=== PATIENT | female | born 1945 | race Caucasian/White ===

== ENCOUNTER 2019-11-10 10:30 | Outpatient (CLI) | payer MEDICARE, SELFPAY | END 2019-11-10 10:31 | disposition home or self-care (01) | LOC: RHEOACUTE 11-27 14:47 | PROVIDERS: Family Provider Family Medicine; PCP Family Medicine; Visit Provider Internal Medicine Rheumatology | DX: M05.79 Rheumatoid arthritis with rheumatoid factor of multiple sites without organ or systems involvement (principal) | CPT/HCPCS: J3262 ==

== ENCOUNTER 2019-11-10 12:22 | Outpatient (CLI) | payer MEDICARE, SELFPAY ==
--- NOTE | 2019-11-10 12:32 | XR_ITS ---
WS: [id number] DEXA (DUAL ENERGY X-RAY ABSORPTIOMETRY) Bone mineral density was performed using a [employer] machine. HISTORY: POSTMENOPAUSAL OSTEOPOROSIS COMPARISON: None available. Lumbar spine BMD (L1-L4): 0.861 g/cm2 T score: -2.7 Z score: -1.3 Total hip BMD: Left: 0.656 g/cm2. T score: -2.8 Z score: -1.3 Right: 0.694 g/cm2. T score: -2.5 Z score: -1.0 10 year probability of a major osteoporotic fracture is 55%. XR/XR DEXA axial skeleton* [id number] IMPRESSION: OSTEOPOROSIS based upon the WHO classification for females.
== END 2019-11-10 12:23 | disposition home or self-care (01) ==
LOC: RADWPI 12:27
PROVIDERS: Family Provider Family Medicine; PCP Family Medicine; Referring Provider Family Medicine; Visit Provider Internal Medicine Rheumatology
DX: M81.0 Age-related osteoporosis without current pathological fracture (principal); Z78.0 Asymptomatic menopausal state; M05.79 Rheumatoid arthritis with rheumatoid factor of multiple sites without organ or systems involvement
CPT/HCPCS: 77080; 96365; 96374; J3262

== ENCOUNTER 2019-12-19 10:44 | Outpatient (CLI) | payer MEDICARE, SELFPAY ==
[2019-12-19 11:00] VITALS: BP 124/53; PULSE 78; RESP 16; TEMP 36.4; O2SAT 96
[2019-12-19 12:00] VITALS: BP 127/65; PULSE 76; RESP 16; TEMP 36.4
== END 2019-12-19 10:45 | disposition home or self-care (01) ==
LOC: RHEOACUTE 10:45
PROVIDERS: Family Provider Family Medicine; PCP Family Medicine; Visit Provider Internal Medicine Rheumatology
DX: M05.79 Rheumatoid arthritis with rheumatoid factor of multiple sites without organ or systems involvement (principal)
CPT/HCPCS: 96365; J3262

== ENCOUNTER 2020-01-23 09:00 | Outpatient (CLI) | payer MEDICARE, SELFPAY ==
[2020-01-23 09:08] VITALS: BP 130/66; PULSE 87; RESP 16; TEMP 36.6; O2SAT 97
--- NOTE | 2020-01-23 10:25 | PC.NURSE ---
COVID 19 screening- pt denies. afebrile. Discussed prevention techniques.
[2020-01-23 11:43] VITALS: BP 121/68; PULSE 80; RESP 16; TEMP 36.6; O2SAT 96
== END 2020-01-23 09:01 | disposition home or self-care (01) ==
LOC: RHEOACUTE 09:01
PROVIDERS: Family Provider Family Medicine; PCP Family Medicine; Visit Provider Internal Medicine Rheumatology
DX: M05.79 Rheumatoid arthritis with rheumatoid factor of multiple sites without organ or systems involvement (principal); Z79.899 Other long term (current) drug therapy
CPT/HCPCS: 36415; 80076; 82565; 85025; 85651; 86140; 96365; J3262

== ENCOUNTER → 2020-01-23 09:22 | Outpatient (BNVA) | payer MEDICARE, SELFPAY | PROVIDERS: Family Provider Family Medicine; PCP Family Medicine | DX: M05.79 Rheumatoid arthritis with rheumatoid factor of multiple sites without organ or systems involvement (principal); Z79.899 Other long term (current) drug therapy | CPT/HCPCS: 85025 ==

== ENCOUNTER 2020-02-20 09:53 | Outpatient (CLI) | payer MEDICARE, SELFPAY ==
[2020-02-20] MEDS: acetaminophen 325 mg Tablet 975 MG PO (10:39)
--- NOTE | 2020-02-20 11:55 | PC.NURSE ---
Pt refused Benadryl, states makes her go wild. Refused Tylenol x 2, took one tablet.
[2020-02-20 12:11] VITALS: BP 128/66; PULSE 76; RESP 16; TEMP 36.8; O2SAT 96
== END 2020-02-20 09:54 | disposition home or self-care (01) ==
LOC: RHEOACUTE 09:55
PROVIDERS: Family Provider Family Medicine; PCP Family Medicine; Visit Provider Internal Medicine Rheumatology
DX: M05.79 Rheumatoid arthritis with rheumatoid factor of multiple sites without organ or systems involvement (principal)
CPT/HCPCS: 96365; 96374; J2920; J3262

== ENCOUNTER → 2020-03-20 14:07 | Outpatient (BNVA) | payer MEDICARE, SELFPAY | PROVIDERS: Family Provider Family Medicine; PCP Family Medicine; Visit Provider Internal Medicine Rheumatology | DX: M05.9 Rheumatoid arthritis with rheumatoid factor, unspecified (principal); Z79.899 Other long term (current) drug therapy; M81.0 Age-related osteoporosis without current pathological fracture | CPT/HCPCS: 99214 ==

== ENCOUNTER 2020-03-27 10:23 | Outpatient (CLI) | payer MEDICARE, SELFPAY ==
--- NOTE | 2020-03-27 10:29 | XR_ITS ---
WS: [id number] FOOT LEFT TECHNIQUE: 3 views of the left foot CLINICAL INFORMATION: rheumatoid arthritis COMPARISON: None. FINDINGS: Osteopenia. Mild soft tissue edema. Tiny plantar calcaneal spur. A few small erosions involving the m etatarsal heads. IP joint narrowing. Hammertoe deformities. No acute fractures. XR/XR foot LT min 3V* [id number] IMPRESSION: 1. Osteopenia with mild soft tissue edema. 2. Mild to moderate degenerative arthritis. 3. No acute fractures.
--- NOTE | 2020-03-27 10:29 | XR_ITS ---
WS: [id number] HAND LEFT TECHNIQUE: 3 views of the left hand CLINICAL INFORMATION: rheumatoid arthritis COMPARISON: March 29, 2009 FINDINGS: Osteopenia. Advanced degenerative narrowing involving the radiocarpal joint and distal radial ulnar j oint. Advanced degenerative changes involving the carpal bones. No acute fractures. IP joint narrowin g involving T8 PD and PIP joints. Joint space narrowing CMC joints worse at the second and third CMC. XR/XR hand LT min 3V* [id number] IMPRESSION: 1. Advanced arthritis involving the radiocarpal joint and carpal bones with na rrowing of the joint spaces. Hypertrophic changes DRUJ. 2. Osteopenia. 3. Advanced joint space narrowing involving the PIP and DIP joints with margin al osteophytes 4. Joint space narrowing CMC joints worse involving the second and third CMC.
--- NOTE | 2020-03-27 10:29 | XR_ITS ---
WS: [id number] FOOT RIGHT TECHNIQUE: 3 views of the right foot CLINICAL INFORMATION: rheumatoid arthritis COMPARISON: None. FINDINGS: No evidence of acute fracture or dislocation. Osteopenia. Hammertoe deformities. A few tiny erosions involving the third through fifth metatarsal heads. IP joint narrowing. Normal TMT alignment. Tiny pl toyin calcaneal spur. XR/XR foot RT min 3V* [id number] IMPRESSION: 1. Osteopenia. 2. Joint space narrowing worse involving the IP joints. 3. No acute fractures. 4. Tiny plantar calcaneal spur.
--- NOTE | 2020-03-27 10:29 | XR_ITS ---
WS: [id number] HAND RIGHT TECHNIQUE: 3 views of the right hand CLINICAL INFORMATION: rheumatoid arthritis COMPARISON: None. FINDINGS: Osteopenia. Advanced arthritis radiocarpal joint with joint space narrowing. PIP and DIP joint narrow ing with hypertrophic spurring with periarticular erosions and mild subluxation. A few small erosions involving the metacarpal heads with mild MCP joint space narrowing. Developing pencil in cup type de formity first MCP. XR/XR hand RT min 3V* [id number] IMPRESSION: 1. Osteopenia with advanced degenerative narrowing at the radiocarpal joint. 2. PIP and DIP joint narrowing with marginal osteophytes and periarticular ero sions.. 3. Pencil in cup type deformity first MCP.
== END 2020-03-27 10:24 | disposition home or self-care (01) ==
LOC: RADWPI 10:28
PROVIDERS: Family Provider Family Medicine; PCP Family Medicine; Visit Provider Internal Medicine Rheumatology
DX: M06.9 Rheumatoid arthritis, unspecified (principal); Z79.899 Other long term (current) drug therapy; M05.79 Rheumatoid arthritis with rheumatoid factor of multiple sites without organ or systems involvement; M85.842 Other specified disorders of bone density and structure, left hand; M85.841 Other specified disorders of bone density and structure, right hand; M25.741 Osteophyte, right hand; M85.871 Other specified disorders of bone density and structure, right ankle and foot; M77.31 Calcaneal spur, right foot; M85.872 Other specified disorders of bone density and structure, left ankle and foot
CPT/HCPCS: 73130; 73630; 80076; 82306; 82565; 85025; 85651; 86140

== ENCOUNTER 2020-03-27 11:05 | Outpatient (CLI) | payer MEDICARE, SELFPAY ==
[2020-03-27 11:15] VITALS: BP 135/73; PULSE 84; RESP 16; TEMP 36.5; O2SAT 97
[2020-03-27] MEDS: acetaminophen 325 mg Tablet 975 MG PO (12:01)
[2020-03-27 13:15] VITALS: BP 134/66; PULSE 68; RESP 16; TEMP 36.6; O2SAT 97
== END 2020-03-27 11:06 | disposition home or self-care (01) ==
LOC: RHEOACUTE 11:07
PROVIDERS: Family Provider Family Medicine; PCP Family Medicine; Visit Provider Internal Medicine Rheumatology
DX: M05.79 Rheumatoid arthritis with rheumatoid factor of multiple sites without organ or systems involvement (principal); Z79.899 Other long term (current) drug therapy; M85.842 Other specified disorders of bone density and structure, left hand; M85.841 Other specified disorders of bone density and structure, right hand; M06.9 Rheumatoid arthritis, unspecified; M25.741 Osteophyte, right hand; M85.871 Other specified disorders of bone density and structure, right ankle and foot; M77.31 Calcaneal spur, right foot; M85.872 Other specified disorders of bone density and structure, left ankle and foot
CPT/HCPCS: 36415; 73130; 73630; 80076; 82306; 82565; 85025; 85651; 86140; 96365; 96374; J2920; J3262

== ENCOUNTER 2020-05-01 10:49 | Outpatient (CLI) | payer MEDICARE, SELFPAY ==
[2020-05-01 11:11] VITALS: BP 139/82; PULSE 74; RESP 16; TEMP 36.6; O2SAT 97
[2020-05-01 13:14] VITALS: BP 140/74; PULSE 72; RESP 16; O2SAT 98
== END 2020-05-01 10:50 | disposition home or self-care (01) ==
LOC: RHEOACUTE 10:50
PROVIDERS: Family Provider Family Medicine; PCP Family Medicine; Visit Provider Internal Medicine Rheumatology
DX: M05.79 Rheumatoid arthritis with rheumatoid factor of multiple sites without organ or systems involvement (principal)
CPT/HCPCS: 96365; 96374; J2920; J3262

== ENCOUNTER 2020-06-05 09:33 | Outpatient (CLI) | payer MEDICARE, SELFPAY ==
[2020-06-05 09:47] VITALS: BP 141/89; PULSE 86; RESP 16; TEMP 36.7; O2SAT 98
[2020-06-05 11:51] VITALS: BP 154/68; PULSE 77
== END 2020-06-05 09:34 | disposition home or self-care (01) ==
LOC: RHEOACUTE 09:35
PROVIDERS: Family Provider Family Medicine; PCP Family Medicine; Visit Provider Internal Medicine Rheumatology
DX: M05.79 Rheumatoid arthritis with rheumatoid factor of multiple sites without organ or systems involvement (principal)
CPT/HCPCS: 96365; 96375; J2920; J3262

== ENCOUNTER → 2020-06-26 12:22 | Outpatient (BNVA) | payer MEDICARE, SELFPAY | PROVIDERS: Family Provider Family Medicine; PCP Family Medicine; Visit Provider Internal Medicine Rheumatology | DX: M05.79 Rheumatoid arthritis with rheumatoid factor of multiple sites without organ or systems involvement (principal); Z79.899 Other long term (current) drug therapy; M81.0 Age-related osteoporosis without current pathological fracture; Z87.19 Personal history of other diseases of the digestive system; M19.041 Primary osteoarthritis, right hand; M19.042 Primary osteoarthritis, left hand | CPT/HCPCS: 36415; 80076; 82565; 85025; 85651; 86140; 99214 ==

== ENCOUNTER 2020-07-03 10:01 | Outpatient (CLI) | payer MEDICARE, SELFPAY ==
[2020-07-03 10:13] VITALS: BP 140/79; PULSE 86; RESP 16; TEMP 36.7; O2SAT 96
[2020-07-03] MEDS: acetaminophen 325 mg Tablet PO (10:40)
--- NOTE | 2020-07-03 11:16 | PC.NURSE ---
1020 Pt states took Tylenol 650mg this am. States she is willing to take Tylenol 325 as pre med.
[2020-07-03 11:35] VITALS: BMI 31.4
[2020-07-03 12:05] VITALS: BP 150/68; PULSE 86; RESP 16; TEMP 36.8; O2SAT 96
== END 2020-07-03 10:02 | disposition home or self-care (01) ==
LOC: RHEOACUTE 10:03
PROVIDERS: Family Provider Family Medicine; PCP Family Medicine; Visit Provider Internal Medicine Rheumatology
DX: M05.79 Rheumatoid arthritis with rheumatoid factor of multiple sites without organ or systems involvement (principal)
CPT/HCPCS: 96365; 96375; J2920; J3262

== ENCOUNTER 2020-07-31 09:47 | Outpatient (CLI) | payer MEDICARE, SELFPAY ==
[2020-07-31 10:02] VITALS: BP 131/64; PULSE 83; RESP 16; TEMP 36.5; O2SAT 96
[2020-07-31] MEDS: acetaminophen 325 mg Tablet 650 MG PO (10:15)
--- NOTE | 2020-07-31 11:21 | PC.NURSE ---
1115 IV pump beeping occlusion. IV redressed and secured with paper tape.
--- NOTE | 2020-07-31 11:55 | PC.NURSE ---
1000 Screened pt for COVID exposure and signs and symptoms. No symptoms. States does some allergy type nose issue off and on, PCP prescribed med. Discussed that pt is at higher risk for infection and COVID risk. Pt understands. States wearing mask, avoiding crowds,etc.
[2020-07-31 12:32] VITALS: BP 132/63; PULSE 82; RESP 16
== END 2020-07-31 09:48 | disposition home or self-care (01) ==
LOC: RHEOACUTE 09:49
PROVIDERS: Family Provider Family Medicine; PCP Family Medicine; Visit Provider Internal Medicine Rheumatology
DX: M05.79 Rheumatoid arthritis with rheumatoid factor of multiple sites without organ or systems involvement (principal)
CPT/HCPCS: 96365; 96375; J2920; J3262

== ENCOUNTER 2020-09-11 09:13 | Outpatient (CLI) | payer MEDICARE, SELFPAY ==
[2020-09-11 10:00] VITALS: BP 146/80; PULSE 81; RESP 16; TEMP 36.3; O2SAT 98
[2020-09-11] MEDS: acetaminophen 325 mg Tablet 975 MG PO (10:30)
[2020-09-11 11:21] VITALS: BMI 33.7
[2020-09-11 12:10] VITALS: BP 136/75; PULSE 76; RESP 16; O2SAT 97
== END 2020-09-11 09:14 | disposition home or self-care (01) ==
LOC: RHEOACUTE 09:14
PROVIDERS: Family Provider Family Medicine; PCP Family Medicine; Visit Provider Internal Medicine Rheumatology
DX: M05.79 Rheumatoid arthritis with rheumatoid factor of multiple sites without organ or systems involvement (principal)
CPT/HCPCS: 80076; 82565; 85025; 85651; 86140; 96365; 96375; J2920; J3262

== ENCOUNTER → 2020-10-01 09:54 | Outpatient (BNVA) | payer MEDICARE, SELFPAY | PROVIDERS: Family Provider Family Medicine; PCP Family Medicine; Visit Provider Internal Medicine Rheumatology | DX: M05.79 Rheumatoid arthritis with rheumatoid factor of multiple sites without organ or systems involvement (principal); M81.0 Age-related osteoporosis without current pathological fracture; M19.041 Primary osteoarthritis, right hand; M19.042 Primary osteoarthritis, left hand; Z79.899 Other long term (current) drug therapy; Z87.891 Personal history of nicotine dependence | CPT/HCPCS: 99204 ==

== ENCOUNTER 2020-10-09 08:51 | Outpatient (CLI) | payer MEDICARE, SELFPAY ==
[2020-10-09 09:05] VITALS: BP 131/81; PULSE 91; RESP 16; TEMP 36.7; O2SAT 96
[2020-10-09] MEDS: acetaminophen 325 mg Tablet 975 MG PO (09:15)
[2020-10-09 11:15] VITALS: BP 154/65; PULSE 83; RESP 16; O2SAT 96
== END 2020-10-09 08:52 | disposition home or self-care (01) ==
LOC: RHEOACUTE 08:52
PROVIDERS: Family Provider Family Medicine; PCP Family Medicine; Visit Provider Internal Medicine Rheumatology
DX: M05.79 Rheumatoid arthritis with rheumatoid factor of multiple sites without organ or systems involvement (principal)
CPT/HCPCS: 96365; 96366; 96375; J2920; J3262

== ENCOUNTER 2020-11-06 08:42 | Outpatient (CLI) | payer MEDICARE, SELFPAY ==
[2020-11-06 08:55] VITALS: BP 122/62; PULSE 84; RESP 16; TEMP 36.1; O2SAT 97
[2020-11-06 09:01] VITALS: BMI 34.0
[2020-11-06] MEDS: acetaminophen 325 mg Tablet 975 MG PO (09:05)
[2020-11-06 10:53] VITALS: BP 143/65; PULSE 84; RESP 16; O2SAT 98
== END 2020-11-06 08:43 | disposition home or self-care (01) ==
LOC: RHEOACUTE 08:44
PROVIDERS: Family Provider Family Medicine; PCP Family Medicine; Visit Provider Internal Medicine Rheumatology
DX: M05.79 Rheumatoid arthritis with rheumatoid factor of multiple sites without organ or systems involvement (principal)
CPT/HCPCS: 96365; 96375; J2920; J3262

== ENCOUNTER 2020-12-03 09:18 | Outpatient (CLI) | payer MEDICARE, SELFPAY ==
[2020-12-03 10:00] VITALS: BP 147/88; PULSE 90; RESP 16; TEMP 36.6; O2SAT 96
[2020-12-03 11:03] LABS: Basophils % 0.7 %; Eosinophils # 0.4 10^3/uL (0.0-0.8); Eosinophils % 8.8 %; Hematocrit 39.5 % (37.0-47.0); Hemoglobin 13.2 g/dL (11.5-15.3); Lymphocytes # 1.2 10^3/uL (0.8-4.8); Mean Corpuscular HGB Conc 33.4 g/dL (30.0-36.0); Mean Corpuscular Volume 104.8 fL (81-99); Monocytes # 0.6 10^3/uL (0.2-0.9); Monocytes % 15.7 %; Neutrophils # 1.82 10^3/uL (1.8-7.7); Neutrophils % 44.8 %; Nucleated Red Blood Cells % 0 %; Platelet Count 171 10^3/cmm (130-400); Red Blood Count 3.77 10^6/uL (4.1-5.3); Red Cell Distribution Width 11.8 % (12.1-15.1); White Blood Count 4.1 10^3/uL (4.0-10.0)
[2020-12-03 11:18] LABS: Alanine Aminotransferase 24 U/L (0-33); Alkaline Phosphatase 73 IU/L (35-105); Aspartate Amino Transferase 20 U/L (0-32); C Reactive Protein 0.3 mg/L (0.0-4.9); Creatinine Clr Calc Pharmacy 55.9421; Globulin 2.5 g/dL (1.3-4.6); Total Bilirubin 0.5 mg/dL (0.15-1.2); Total Protein 6.5 g/dL (6.6-8.7)
[2020-12-03 11:45] VITALS: BP 132/82; PULSE 81; RESP 16; TEMP 36.4; O2SAT 95
[2020-12-04 11:59] LABS: Cyclic Citrullinated Peptide >250 UNITS
--- NOTE | 2020-12-31 08:34 | PC.NURSE ---
Due to an administrative issue we are doing a late entry for clarity of the medical record. The infusion case was routine and the approximate stop time was 1145 based upon the start time of 1045.
== END 2020-12-03 09:19 | disposition home or self-care (01) ==
PROVIDERS: Internal Medicine Rheumatology; Family Provider Family Medicine; PCP Family Medicine; Visit Provider Internal Medicine Medical Oncology
DX: M05.79 Rheumatoid arthritis with rheumatoid factor of multiple sites without organ or systems involvement; M19.041 Primary osteoarthritis, right hand; M81.0 Age-related osteoporosis without current pathological fracture; Z79.899 Other long term (current) drug therapy
CPT/HCPCS: 80076; 82565; 85025; 86140; 96365; 96375; J2920; J3262

== ENCOUNTER 2020-12-31 09:01 | Outpatient (CLI) | payer MEDICARE, SELFPAY ==
[2020-12-31] MEDS: sodium chloride 0.9% (100 ml) 100 ML (10:00)
[2020-12-31] MEDS: acetaminophen 325 mg Tablet 975 MG PO (10:15)
[2020-12-31 10:23] LABS: Basophils % 0.8 %; Eosinophils # 0.3 10^3/uL (0.0-0.8); Eosinophils % 8.1 %; Hematocrit 40.6 % (37.0-47.0); Hemoglobin 13.6 g/dL (11.5-15.3); Lymphocytes # 1.1 10^3/uL (0.8-4.8); Lymphocytes % 28.1 %; Mean Corpuscular HGB Conc 33.5 g/dL (30.0-36.0); Mean Corpuscular Hemoglobin 35.3 pg (28.0-34.0); Mean Corpuscular Volume 105.5 fL (81-99); Mean Platelet Volume 11.2 fL (7.4-10.4); Monocytes # 0.6 10^3/uL (0.2-0.9); Monocytes % 15.3 %; Neutrophils # 1.84 10^3/uL (1.8-7.7); Neutrophils % 47.7 %; Nucleated Red Blood Cells % 0 %; Platelet Count 165 10^3/cmm (130-400); Red Blood Count 3.85 10^6/uL (4.1-5.3); Red Cell Distribution Width 11.7 % (12.1-15.1); White Blood Count 3.9 10^3/uL (4.0-10.0)
[2020-12-31 10:39] LABS: Alanine Aminotransferase 26 U/L (0-33); Albumin Level 4.2 g/dL (3.5-5.2); Alkaline Phosphatase 77 IU/L (35-105); Aspartate Amino Transferase 22 U/L (0-32); C Reactive Protein 0.3 mg/L (0.0-4.9); Globulin 2.7 g/dL (1.3-4.6); Total Bilirubin 0.5 mg/dL (0.15-1.2); Total Protein 6.9 g/dL (6.6-8.7)
[2020-12-31 11:45] VITALS: BP 126/61; PULSE 80; RESP 18; TEMP 36.7; O2SAT 96
[2020-12-31 11:46] VITALS: BP 126/72; PULSE 80; RESP 18; TEMP 36.6; O2SAT 96
[2021-01-01 13:23] LABS: Cyclic Citrullinated Peptide >250 UNITS
== END 2020-12-31 09:02 | disposition home or self-care (01) ==
PROVIDERS: Family Provider Family Medicine; PCP Family Medicine; Visit Provider Internal Medicine Rheumatology
DX: M05.79 Rheumatoid arthritis with rheumatoid factor of multiple sites without organ or systems involvement (principal)
CPT/HCPCS: 80076; 82565; 85025; 86140; 96365; 96375; J2920; J3262

== ENCOUNTER 2021-02-04 09:12 | Outpatient (CLI) | payer MEDICARE, SELFPAY ==
[2021-02-04 09:45] VITALS: BP 128/61; PULSE 81; RESP 16; TEMP 36.7; O2SAT 97
[2021-02-04] MEDS: acetaminophen 325 mg Tablet 650 MG PO (09:50)
[2021-02-04] MEDS: sodium chloride 0.9% 250 ML IV (09:52)
--- NOTE | 2021-02-18 09:11 | PC.NURSE ---
Due to an administrative issue we are doing a late entry for clarity of the 02/04/21 medical record. The infusion case was routine and the approximate stop time was 1045 based upon the start time of 0945. RILTR
== END 2021-02-04 09:13 | disposition home or self-care (01) ==
PROVIDERS: Family Provider Family Medicine; PCP Family Medicine; Visit Provider Internal Medicine Rheumatology
DX: M05.79 Rheumatoid arthritis with rheumatoid factor of multiple sites without organ or systems involvement (principal)
CPT/HCPCS: 96365; 96375; J2920; J3262; J7050

== ENCOUNTER → 2021-03-04 14:09 | Outpatient (BNVA) | payer MEDICARE, SELFPAY | PROVIDERS: Family Provider Family Medicine; PCP Family Medicine; Visit Provider Internal Medicine Rheumatology | DX: M05.79 Rheumatoid arthritis with rheumatoid factor of multiple sites without organ or systems involvement (principal); M81.0 Age-related osteoporosis without current pathological fracture; Z87.310 Personal history of (healed) osteoporosis fracture; M19.041 Primary osteoarthritis, right hand; M19.042 Primary osteoarthritis, left hand; Z79.899 Other long term (current) drug therapy; Z87.19 Personal history of other diseases of the digestive system; Z87.891 Personal history of nicotine dependence | CPT/HCPCS: 99214 ==

== ENCOUNTER 2021-03-06 09:15 | Outpatient (CLI) | payer MEDICARE, SELFPAY ==
[2021-03-06 09:34] VITALS: BP 134/50; PULSE 76; RESP 18; TEMP 36.4; O2SAT 97
[2021-03-06 10:38] LABS: Basophils % 0.5 %; Eosinophils # 0.2 10^3/uL (0.0-0.8); Eosinophils % 2.7 %; Hematocrit 39.8 % (37.0-47.0); Hemoglobin 13.3 g/dL (11.5-15.3); Lymphocytes # 1.5 10^3/uL (0.8-4.8); Lymphocytes % 22.7 %; Mean Corpuscular HGB Conc 33.4 g/dL (30.0-36.0); Mean Corpuscular Hemoglobin 35.1 pg (28.0-34.0); Monocytes # 0.9 10^3/uL (0.2-0.9); Monocytes % 14.1 %; Neutrophils % 59.5 %; Nucleated Red Blood Cells % 0 %; Platelet Count 177 10^3/cmm (130-400); Red Blood Count 3.79 10^6/uL (4.1-5.3); Red Cell Distribution Width 11.5 % (12.1-15.1); White Blood Count 6.4 10^3/uL (4.0-10.0)
[2021-03-06] MEDS: acetaminophen 325 mg Tablet 650 MG PO (10:56)
[2021-03-06] MEDS: sodium chloride 0.9% 250 ML 75 ML IV (11:00)
[2021-03-06 11:03] LABS: Alanine Aminotransferase 21 U/L (0-33); Albumin Level 4.1 g/dL (3.5-5.2); Alkaline Phosphatase 76 IU/L (35-105); Aspartate Amino Transferase 16 U/L (0-32); C Reactive Protein 0.3 mg/L (0.0-4.9); Globulin 2.5 g/dL (1.3-4.6); Total Bilirubin 0.5 mg/dL (0.15-1.2); Total Protein 6.6 g/dL (6.6-8.7)
[2021-03-06 12:14] VITALS: BP 156/75; PULSE 77; RESP 18; TEMP 36.3; O2SAT 98
== END 2021-03-06 09:16 | disposition home or self-care (01) ==
PROVIDERS: Family Provider Family Medicine; PCP Family Medicine; Visit Provider Internal Medicine Rheumatology
DX: M05.79 Rheumatoid arthritis with rheumatoid factor of multiple sites without organ or systems involvement (principal)
CPT/HCPCS: 80076; 82565; 85025; 86140; 96365; 96375; J2920; J3262; J7050

== ENCOUNTER 2021-04-08 09:22 | Outpatient (CLI) | payer MEDICARE, SELFPAY ==
[2021-04-08 10:04] VITALS: BP 135/58; PULSE 76; RESP 16; TEMP 36.9; O2SAT 98
[2021-04-08] MEDS: sodium chloride 0.9% 250 ML 75 ML IV (10:12)
[2021-04-08] MEDS: acetaminophen 325 mg Tablet 650 MG PO (10:15)
[2021-04-08 11:55] VITALS: BP 146/67; PULSE 78; RESP 16; TEMP 36.2; O2SAT 97
== END 2021-04-08 09:23 | disposition home or self-care (01) ==
PROVIDERS: Family Provider Family Medicine; PCP Family Medicine; Referring Provider Internal Medicine Rheumatology; Visit Provider Internal Medicine Rheumatology
DX: M05.79 Rheumatoid arthritis with rheumatoid factor of multiple sites without organ or systems involvement (principal)
CPT/HCPCS: 96365; 96375; J2920; J3262; J7050

== ENCOUNTER 2021-05-06 09:34 | Outpatient (CLI) | payer MEDICARE, SELFPAY ==
[2021-05-06 09:57] VITALS: BP 125/59; PULSE 89; RESP 18; TEMP 36.9; O2SAT 96
[2021-05-06] MEDS: acetaminophen 325 mg Tablet 650 MG PO (10:47)
[2021-05-06 10:48] LABS: Basophils % 0.6 %; Eosinophils # 0.4 10^3/uL (0.0-0.8); Hematocrit 40.3 % (37.0-47.0); Hemoglobin 13.7 g/dL (11.5-15.3); Lymphocytes # 1.2 10^3/uL (0.8-4.8); Lymphocytes % 23.3 %; Mean Corpuscular Hemoglobin 35.4 pg (28.0-34.0); Mean Corpuscular Volume 104.1 fL (81-99); Mean Platelet Volume 10.7 fL (7.4-10.4); Monocytes # 0.6 10^3/uL (0.2-0.9); Monocytes % 11.6 %; Neutrophils # 2.95 10^3/uL (1.8-7.7); Neutrophils % 57.1 %; Nucleated Red Blood Cells % 0 %; Platelet Count 168 10^3/cmm (130-400); Red Blood Count 3.87 10^6/uL (4.1-5.3); Red Cell Distribution Width 11.9 % (12.1-15.1); White Blood Count 5.2 10^3/uL (4.0-10.0)
[2021-05-06] MEDS: sodium chloride 0.9% 250 ML 75 ML IV (10:50)
[2021-05-06 11:14] LABS: Alanine Aminotransferase 18 U/L (0-33); Albumin Level 3.9 g/dL (3.5-5.2); Alkaline Phosphatase 73 IU/L (35-105); Aspartate Amino Transferase 18 U/L (0-32); C Reactive Protein 0.3 mg/L (0.0-4.9); Creatinine Clr Calc Pharmacy 54.2246; Globulin 2.2 g/dL (1.3-4.6); Total Bilirubin 0.4 mg/dL (0.15-1.2); Total Protein 6.1 g/dL (6.6-8.7)
[2021-05-06 11:47] VITALS: BP 153/71; PULSE 86; RESP 18; TEMP 36.4; O2SAT 98
== END 2021-05-06 09:35 | disposition home or self-care (01) ==
PROVIDERS: Family Provider Family Medicine; PCP Family Medicine; Referring Provider Internal Medicine Rheumatology; Visit Provider Internal Medicine Rheumatology
DX: M05.79 Rheumatoid arthritis with rheumatoid factor of multiple sites without organ or systems involvement (principal)
CPT/HCPCS: 36415; 80076; 82565; 85025; 86140; 96365; 96375; J2920; J3262; J7050

== ENCOUNTER 2021-06-03 08:54 | Outpatient (CLI) | payer MEDICARE, SELFPAY ==
[2021-06-03 09:38] VITALS: BP 143/61; PULSE 78; RESP 18; TEMP 36.3; O2SAT 98
[2021-06-03] MEDS: acetaminophen 325 mg Tablet 650 MG PO (10:42)
[2021-06-03] MEDS: sodium chloride 0.9% 250 ML 75 ML IV (10:42)
[2021-06-03 12:14] VITALS: BP 146/69; PULSE 80; RESP 18; TEMP 36.4; O2SAT 98
== END 2021-06-03 08:55 | disposition home or self-care (01) ==
PROVIDERS: Family Provider Family Medicine; PCP Family Medicine; Visit Provider Internal Medicine Rheumatology
DX: M05.79 Rheumatoid arthritis with rheumatoid factor of multiple sites without organ or systems involvement (principal)
CPT/HCPCS: 96365; 96375; J2920; J3262; J7050

== ENCOUNTER 2021-07-01 09:31 | Outpatient (CLI) | payer MEDICARE, SELFPAY ==
[2021-07-01 09:50] VITALS: BP 151/72; PULSE 86; RESP 18; TEMP 36.1; O2SAT 96
[2021-07-01] MEDS: acetaminophen 325 mg Tablet 650 MG PO (10:30)
[2021-07-01] MEDS: sodium chloride 0.9% 250 ML 75 ML IV (10:40)
[2021-07-01 12:06] VITALS: BP 143/81; PULSE 75; RESP 18; TEMP 36.2; O2SAT 99
== END 2021-07-01 09:32 | disposition home or self-care (01) ==
PROVIDERS: PCP Family Medicine; Visit Provider Internal Medicine Rheumatology
DX: M05.79 Rheumatoid arthritis with rheumatoid factor of multiple sites without organ or systems involvement (principal)
CPT/HCPCS: 96365; 96375; J2920; J3262; J7050

== ENCOUNTER → 2021-07-09 09:34 | Outpatient (BNVA) | payer MEDICARE, SELFPAY | PROVIDERS: PCP Family Medicine; Visit Provider Internal Medicine Rheumatology | DX: M05.79 Rheumatoid arthritis with rheumatoid factor of multiple sites without organ or systems involvement (principal); M80.88XA Other osteoporosis with current pathological fracture, vertebra(e), initial encounter for fracture; M19.041 Primary osteoarthritis, right hand; M19.042 Primary osteoarthritis, left hand; Z87.19 Personal history of other diseases of the digestive system; Z79.899 Other long term (current) drug therapy; Z71.89 Other specified counseling; Z87.891 Personal history of nicotine dependence | CPT/HCPCS: 99214 ==

== ENCOUNTER 2021-09-15 10:16 | Outpatient (CLI) | payer MEDICARE, SELFPAY ==
[2021-09-15 10:34] VITALS: BP 140/79; PULSE 97; RESP 18; TEMP 36.7; O2SAT 99
[2021-09-15] MEDS: sodium chloride 0.9% 250 ML 75 ML IV (11:05)
[2021-09-15] MEDS: acetaminophen 325 mg Tablet 650 MG PO (11:07)
[2021-09-15 11:10] LABS: Basophils # 0.1 10^3/uL (0.0-0.1); Basophils % 0.5 %; Eosinophils # 0.2 10^3/uL (0.0-0.8); Eosinophils % 1.9 %; Hematocrit 38.4 % (37.0-47.0); Hemoglobin 12.7 g/dL (11.5-15.3); Lymphocytes # 1.3 10^3/uL (0.8-4.8); Lymphocytes % 11.1 %; Mean Corpuscular HGB Conc 33.1 g/dL (30.0-36.0); Mean Corpuscular Hemoglobin 34.1 pg (28.0-34.0); Mean Corpuscular Volume 103.2 fl (81-99); Mean Platelet Volume 10.7 fL (7.4-10.4); Monocytes # 1.2 10^3/uL (0.2-0.9); Monocytes % 10.2 %; Neutrophils # 8.59 10^3/uL (1.8-7.7); Neutrophils % 75.9 %; Nucleated Red Blood Cells % 0 %; Platelet Count 272 10^3/cmm (130-400); Red Blood Count 3.72 10^6/uL (4.1-5.3); Red Cell Distribution Width 11.1 % (12.1-15.1); White Blood Count 11.3 10^3/uL (4.0-10.0)
[2021-09-15 11:30] LABS: Alanine Aminotransferase 12 U/L (0-33); Albumin Level 3.7 g/dL (3.5-5.2); Alkaline Phosphatase 83 IU/L (35-105); Aspartate Amino Transferase 14 U/L (0-32); C Reactive Protein 38.4 mg/L (0.0-4.9); Globulin 3.4 g/dL (1.3-4.6); Total Bilirubin 0.3 mg/dL (0.15-1.2); Total Protein 7.1 g/dL (6.6-8.7)
[2021-09-15 12:43] VITALS: BP 150/69; PULSE 87; RESP 18; TEMP 36.4; O2SAT 97
== END 2021-09-15 10:17 | disposition home or self-care (01) ==
PROVIDERS: PCP Family Medicine; Referring Provider Internal Medicine Rheumatology; Visit Provider Internal Medicine Rheumatology
DX: M05.79 Rheumatoid arthritis with rheumatoid factor of multiple sites without organ or systems involvement (principal)
CPT/HCPCS: 80076; 82565; 85025; 86140; 96365; 96375; J2920; J3262; J7050

== ENCOUNTER 2021-10-22 09:07 | Outpatient (CLI) | payer MEDICARE, SELFPAY ==
[2021-10-22 09:21] VITALS: BP 130/81; PULSE 82; RESP 18; TEMP 36.6; O2SAT 98
[2021-10-22] MEDS: sodium chloride 0.9% 250 ML 50 ML IV (09:34)
[2021-10-22] MEDS: acetaminophen 325 mg Tablet 650 MG PO (09:35)
[2021-10-22 10:54] VITALS: BP 142/82; PULSE 78; RESP 18; TEMP 36.4; O2SAT 97
== END 2021-10-22 09:08 | disposition home or self-care (01) ==
PROVIDERS: PCP Family Medicine; Referring Provider Internal Medicine Rheumatology; Visit Provider Internal Medicine Rheumatology
DX: M05.79 Rheumatoid arthritis with rheumatoid factor of multiple sites without organ or systems involvement (principal)
CPT/HCPCS: 96365; 96375; J2920; J3262; J7050

== ENCOUNTER 2021-11-19 08:59 | Outpatient (CLI) | payer MEDICARE, SELFPAY ==
[2021-11-19] MEDS: sodium chloride 0.9% 250 ML 50 ML IV (09:45)
[2021-11-19] MEDS: acetaminophen 325 mg Tablet 650 MG PO (09:45)
[2021-11-19 09:50] VITALS: BP 140/59; PULSE 83; RESP 18; TEMP 36.3; O2SAT 96
[2021-11-19 09:58] LABS: Basophils # 0.1 10^3/uL (0.0-0.1); Basophils % 1.1 %; Eosinophils # 0.5 10^3/uL (0.0-0.8); Eosinophils % 10.3 %; Hematocrit 41.7 % (37.0-47.0); Hemoglobin 13.6 g/dL (11.5-15.3); Lymphocytes # 1.4 10^3/uL (0.8-4.8); Lymphocytes % 31.1 %; Mean Corpuscular HGB Conc 32.6 g/dL (30.0-36.0); Mean Corpuscular Hemoglobin 34.3 pg (28.0-34.0); Mean Platelet Volume 11.2 fL (7.4-10.4); Monocytes # 0.6 10^3/uL (0.2-0.9); Neutrophils # 1.93 10^3/uL (1.8-7.7); Neutrophils % 44.3 %; Nucleated Red Blood Cells % 0 %; Platelet Count 174 10^3/cmm (130-400); Red Blood Count 3.97 10^6/uL (4.1-5.3); White Blood Count 4.4 10^3/uL (4.0-10.0)
[2021-11-19 10:05] LABS: Alanine Aminotransferase 18 U/L (0-33); Albumin Level 3.9 g/dL (3.5-5.2); Alkaline Phosphatase 80 IU/L (35-105); Aspartate Amino Transferase 17 U/L (0-32); C Reactive Protein 0.3 mg/L (0.0-4.9); Creatinine Clr Calc Pharmacy 54.2246; Globulin 2.5 g/dL (1.3-4.6); Total Bilirubin 0.3 mg/dL (0.15-1.2); Total Protein 6.4 g/dL (6.6-8.7)
[2021-11-19 10:59] VITALS: BP 146/75; PULSE 78; TEMP 36.5; O2SAT 95
== END 2021-11-19 09:00 | disposition home or self-care (01) ==
LOC: ONCMED 09:04
PROVIDERS: PCP Family Medicine; Referring Provider Internal Medicine Rheumatology; Visit Provider Internal Medicine Rheumatology
DX: M05.79 Rheumatoid arthritis with rheumatoid factor of multiple sites without organ or systems involvement (principal)
CPT/HCPCS: 80076; 82565; 85025; 86140; 96365; 96375; J2920; J3262; J7050

== ENCOUNTER 2022-01-06 09:26 | Outpatient (CLI) | payer MEDICARE, SELFPAY ==
[2022-01-06 09:52] VITALS: BP 139/69; PULSE 82; RESP 18; TEMP 36.2; O2SAT 98
[2022-01-06 09:59] LABS: Basophils # 0.1 10^3/uL (0.0-0.1); Basophils % 0.6 %; Eosinophils # 0.4 10^3/uL (0.0-0.8); Eosinophils % 3.5 %; Hematocrit 41.1 % (37.0-47.0); Hemoglobin 13.4 g/dL (11.5-15.3); Lymphocytes # 1.2 10^3/uL (0.8-4.8); Lymphocytes % 11.8 %; Mean Corpuscular HGB Conc 32.6 g/dL (30.0-36.0); Mean Corpuscular Hemoglobin 35.1 pg (28.0-34.0); Mean Corpuscular Volume 107.6 fl (81-99); Mean Platelet Volume 10.6 fL (7.4-10.4); Monocytes # 1.1 10^3/uL (0.2-0.9); Monocytes % 10.8 %; Neutrophils # 7.58 10^3/uL (1.8-7.7); Neutrophils % 72.9 %; Nucleated Red Blood Cells % 0 %; Platelet Count 226 10^3/cmm (130-400); Red Blood Count 3.82 10^6/uL (4.1-5.3); Red Cell Distribution Width 11.5 % (12.1-15.1); White Blood Count 10.4 10^3/uL (4.0-10.0)
[2022-01-06] MEDS: acetaminophen 325 mg Tablet 650 MG PO (10:00)
[2022-01-06] MEDS: sodium chloride 0.9% 250 ML 50 ML IV (10:02)
[2022-01-06 10:17] LABS: Alanine Aminotransferase 72 U/L (0-33); Albumin Level 4.2 g/dL (3.5-5.2); Alkaline Phosphatase 127 IU/L (35-105); Aspartate Amino Transferase 55 U/L (0-32); C Reactive Protein 20.5 mg/L (0.0-4.9); Globulin 3.3 g/dL (1.3-4.6); Total Bilirubin 0.4 mg/dL (0.15-1.2); Total Protein 7.5 g/dL (6.6-8.7)
[2022-01-06 11:36] VITALS: BP 139/66; PULSE 81; RESP 18; TEMP 36.4; O2SAT 95
== END 2022-01-06 09:27 | disposition home or self-care (01) ==
PROVIDERS: PCP Family Medicine; Referring Provider Internal Medicine Rheumatology; Visit Provider Internal Medicine Rheumatology
DX: M05.79 Rheumatoid arthritis with rheumatoid factor of multiple sites without organ or systems involvement (principal); Z79.899 Other long term (current) drug therapy
CPT/HCPCS: 80076; 82565; 85025; 86140; 96365; 96375; J2920; J3262; J7050

== ENCOUNTER 2022-02-03 09:20 | Outpatient (CLI) | payer MEDICARE, SELFPAY ==
[2022-02-03 09:53] VITALS: BP 145/74; PULSE 85; RESP 18; TEMP 36.5; O2SAT 96
[2022-02-03] MEDS: acetaminophen 325 mg Tablet 650 MG PO (10:00)
[2022-02-03] MEDS: sodium chloride 0.9% 250 ML 50 ML IV (10:03)
[2022-02-03 11:17] VITALS: BP 139/82; PULSE 84; RESP 18; TEMP 36.4; O2SAT 97
== END 2022-02-03 09:21 | disposition home or self-care (01) ==
PROVIDERS: PCP Family Medicine; Referring Provider Internal Medicine Rheumatology; Visit Provider Internal Medicine Rheumatology
DX: M05.79 Rheumatoid arthritis with rheumatoid factor of multiple sites without organ or systems involvement (principal)
CPT/HCPCS: 96365; 96375; J2920; J3262; J7050

== ENCOUNTER → 2022-02-26 09:42 | Outpatient (BNVA) | payer MEDICARE, SELFPAY | PROVIDERS: PCP Family Medicine; Visit Provider Internal Medicine Rheumatology | DX: M05.79 Rheumatoid arthritis with rheumatoid factor of multiple sites without organ or systems involvement (principal); Z79.899 Other long term (current) drug therapy; M81.0 Age-related osteoporosis without current pathological fracture; R74.01 Elevation of levels of liver transaminase levels | CPT/HCPCS: 99214 ==

== ENCOUNTER 2022-03-03 09:37 | Outpatient (CLI) | payer MEDICARE, SELFPAY ==
[2022-03-03 09:53] VITALS: BP 130/84; PULSE 87; RESP 18; TEMP 36.2; O2SAT 99
[2022-03-03 10:09] LABS: Basophils % 1.1 %; Eosinophils # 0.3 10^3/uL (0.0-0.8); Eosinophils % 7.7 %; Hematocrit 39.6 % (37.0-47.0); Hemoglobin 13.6 g/dL (11.5-15.3); Lymphocytes # 1.1 10^3/uL (0.8-4.8); Lymphocytes % 29.9 %; Mean Corpuscular HGB Conc 34.3 g/dL (30.0-36.0); Mean Corpuscular Hemoglobin 36.5 pg (28.0-34.0); Mean Corpuscular Volume 106.2 fl (81-99); Mean Platelet Volume 10.6 fL (7.4-10.4); Monocytes # 0.8 10^3/uL (0.2-0.9); Neutrophils % 38.3 %; Nucleated Red Blood Cells % 0 %; Platelet Count 153 10^3/cmm (130-400); Red Blood Count 3.73 10^6/uL (4.1-5.3); Red Cell Distribution Width 12.1 % (12.1-15.1); White Blood Count 3.7 10^3/uL (4.0-10.0)
[2022-03-03] MEDS: sodium chloride 0.9% 250 ML 50 ML IV (10:33)
[2022-03-03] MEDS: acetaminophen 325 mg Tablet 650 MG PO (10:36)
[2022-03-03 12:00] LABS: Alanine Aminotransferase 28 U/L (0-33); Albumin Level 4.3 g/dL (3.5-5.2); Alkaline Phosphatase 72 IU/L (35-105); Aspartate Amino Transferase 20 U/L (0-32); Globulin 2.7 g/dL (1.3-4.6); Total Bilirubin 0.6 mg/dL (0.15-1.2)
[2022-03-03 12:17] VITALS: BP 137/84; PULSE 88; RESP 18; TEMP 36.6; O2SAT 97
== END 2022-03-03 09:38 | disposition home or self-care (01) ==
PROVIDERS: PCP Family Medicine; Referring Provider Internal Medicine Rheumatology; Visit Provider Internal Medicine Rheumatology
DX: M05.79 Rheumatoid arthritis with rheumatoid factor of multiple sites without organ or systems involvement (principal); Z79.899 Other long term (current) drug therapy
CPT/HCPCS: 80076; 82565; 85025; 86140; 96365; 96375; J2920; J3262; J7050

== ENCOUNTER 2022-04-15 09:35 | Outpatient (CLI) | payer MEDICARE, SELFPAY ==
[2022-04-15 09:47] VITALS: BP 132/76; PULSE 96; RESP 18; TEMP 36.2; O2SAT 96
[2022-04-15] MEDS: sodium chloride 0.9% 250 ML 50 ML IV (10:14)
[2022-04-15] MEDS: acetaminophen 325 mg Tablet 650 MG PO (10:16)
[2022-04-15 11:37] VITALS: BP 139/66; PULSE 85; RESP 18; TEMP 36.3; O2SAT 99
== END 2022-04-15 09:36 | disposition home or self-care (01) ==
PROVIDERS: PCP Family Medicine; Referring Provider Internal Medicine Rheumatology; Visit Provider Internal Medicine Rheumatology
DX: M05.79 Rheumatoid arthritis with rheumatoid factor of multiple sites without organ or systems involvement (principal)
CPT/HCPCS: 96365; 96375; J2920; J3262; J7050

== ENCOUNTER 2022-05-14 09:37 | Outpatient (CLI) | payer MEDICARE, SELFPAY ==
[2022-05-14 09:49] VITALS: BP 133/65; PULSE 90; RESP 18; TEMP 36.1; O2SAT 98
[2022-05-14 10:16] LABS: Basophils # 0.1 10^3/uL (0.0-0.1); Basophils % 1.1 %; Eosinophils # 0.4 10^3/uL (0.0-0.8); Eosinophils % 7.8 %; Hematocrit 41.1 % (37.0-47.0); Hemoglobin 13.8 g/dL (11.5-15.3); Lymphocytes # 1.3 10^3/uL (0.8-4.8); Mean Corpuscular HGB Conc 33.6 g/dL (30.0-36.0); Mean Corpuscular Hemoglobin 35.2 pg (28.0-34.0); Mean Corpuscular Volume 104.8 fl (81-99); Mean Platelet Volume 10.8 fL (7.4-10.4); Monocytes # 0.8 10^3/uL (0.2-0.9); Monocytes % 14.6 %; Neutrophils % 51.1 %; Nucleated Red Blood Cells % 0 %; Platelet Count 163 10^3/cmm (130-400); Red Blood Count 3.92 10^6/uL (4.1-5.3); Red Cell Distribution Width 11.7 % (12.1-15.1); White Blood Count 5.3 10^3/uL (4.0-10.0)
[2022-05-14] MEDS: acetaminophen 325 mg Tablet 650 MG PO (10:27)
[2022-05-14] MEDS: sodium chloride 0.9% 250 ML 50 ML IV (10:27)
[2022-05-14 10:28] LABS: Alanine Aminotransferase 27 U/L (0-33); Albumin Level 4.3 g/dL (3.5-5.2); Alkaline Phosphatase 80 IU/L (35-105); Aspartate Amino Transferase 21 U/L (0-32); Globulin 2.6 g/dL (1.3-4.6); Total Bilirubin 0.5 mg/dL (0.15-1.2); Total Protein 6.9 g/dL (6.6-8.7)
[2022-05-14 11:45] VITALS: BP 137/72; PULSE 75; RESP 18; TEMP 36.4; O2SAT 97
== END 2022-05-14 09:38 | disposition home or self-care (01) ==
PROVIDERS: PCP Family Medicine; Referring Provider Internal Medicine Rheumatology; Visit Provider Internal Medicine Rheumatology
DX: M05.79 Rheumatoid arthritis with rheumatoid factor of multiple sites without organ or systems involvement (principal); Z79.899 Other long term (current) drug therapy
CPT/HCPCS: 80076; 82565; 85025; 86140; 96365; 96375; J2920; J3262; J7050

== ENCOUNTER 2022-06-17 09:27 | Outpatient (CLI) | payer MEDICARE, SELFPAY ==
[2022-06-17 09:36] VITALS: BP 136/74; PULSE 79; RESP 18; TEMP 36.3; O2SAT 98
[2022-06-17] MEDS: sodium chloride 0.9% 250 ML 50 ML IV (10:03)
[2022-06-17] MEDS: acetaminophen 325 mg Tablet 650 MG PO (10:04)
[2022-06-17 11:19] VITALS: BP 143/81; PULSE 80; RESP 18; TEMP 36.2; O2SAT 97
== END 2022-06-17 09:28 | disposition home or self-care (01) ==
PROVIDERS: PCP Family Medicine; Visit Provider Internal Medicine Rheumatology
DX: M05.79 Rheumatoid arthritis with rheumatoid factor of multiple sites without organ or systems involvement (principal)
CPT/HCPCS: 96365; 96375; J2920; J3262; J7050

== ENCOUNTER → 2022-06-23 10:36 | Outpatient (BNVA) | payer MEDICARE, SELFPAY | PROVIDERS: PCP Family Medicine; Visit Provider Internal Medicine Rheumatology | DX: M05.79 Rheumatoid arthritis with rheumatoid factor of multiple sites without organ or systems involvement (principal); Z79.899 Other long term (current) drug therapy; Z71.89 Other specified counseling; M15.4 Erosive (osteo)arthritis; M80.08XA Age-related osteoporosis with current pathological fracture, vertebra(e), initial encounter for fracture; Z87.19 Personal history of other diseases of the digestive system | CPT/HCPCS: 72040; 72072; 72100; 99214 ==

== ENCOUNTER 2022-07-27 09:56 | Outpatient (CLI) | payer MEDICARE, SELFPAY ==
[2022-07-27 10:55] VITALS: BP 120/65; PULSE 82; RESP 18; TEMP 36.2; O2SAT 97
[2022-07-27 10:55] LABS: Basophils % 0.5 %; Eosinophils # 0.5 10^3/uL (0.0-0.8); Eosinophils % 6.2 %; Hematocrit 38.7 % (37.0-47.0); Hemoglobin 13.1 g/dL (11.5-15.3); Lymphocytes # 1.2 10^3/uL (0.8-4.8); Mean Corpuscular HGB Conc 33.9 g/dL (30.0-36.0); Mean Corpuscular Hemoglobin 35.6 pg (28.0-34.0); Mean Corpuscular Volume 105.2 fl (81-99); Mean Platelet Volume 10.6 fL (7.4-10.4); Monocytes # 0.7 10^3/uL (0.2-0.9); Monocytes % 8.8 %; Neutrophils # 5.77 10^3/uL (1.8-7.7); Neutrophils % 70.4 %; Nucleated Red Blood Cells % 0 %; Platelet Count 183 10^3/cmm (130-400); Red Blood Count 3.68 10^6/uL (4.1-5.3); Red Cell Distribution Width 11.9 % (12.1-15.1); White Blood Count 8.2 10^3/uL (4.0-10.0)
[2022-07-27 10:59] LABS: Erythrocyte Sedimentation Rate 9 mm/hr (0-15)
[2022-07-27] MEDS: acetaminophen 325 mg Tablet 650 MG PO (11:06)
[2022-07-27] MEDS: sodium chloride 0.9% 250 ML 50 ML IV (11:06)
[2022-07-27 11:17] LABS: Alanine Aminotransferase 17 U/L (0-33); Albumin Level 4.2 g/dL (3.5-5.2); Alkaline Phosphatase 78 U/L (35-105); Aspartate Amino Transferase 20 U/L (0-32); Globulin 2.4 g/dL (1.3-4.6); Total Bilirubin 0.4 mg/dL (0.15-1.2); Total Protein 6.6 g/dL (6.6-8.7)
[2022-07-27 12:41] VITALS: BP 128/70; PULSE 82; RESP 18; TEMP 36.2; O2SAT 96
== END 2022-07-27 09:57 | disposition home or self-care (01) ==
PROVIDERS: PCP Family Medicine; Visit Provider Internal Medicine Rheumatology
DX: M05.79 Rheumatoid arthritis with rheumatoid factor of multiple sites without organ or systems involvement (principal); Z79.899 Other long term (current) drug therapy
CPT/HCPCS: 80076; 82565; 85025; 85651; 96365; 96375; J2920; J3262; J7050

== ENCOUNTER 2022-07-27 12:47 | Outpatient (CLI) | payer MEDICARE, SELFPAY ==
--- NOTE | 2022-07-27 13:30 | XR_ITS ---
WS: [id number] SCREENING DEXA SCAN HOTEL Top-Level Domain CLINICAL INFORMATION: M81.0 - Age-related osteoporosis without current patholog... COMPARISON: November 10, 2019 FINDINGS: The L1-L4 bone mineral density measures 0.930 g/cm2. This corresponds to a T score score of -2.1 and Z score of -0.7. Left femoral neck bone mineral density measures 0.672 g/cm2. This corresponds to a T score of -2.7 an d Z score of -1.0. Right femoral neck bone mineral density measures 0.699 g/cm2. This corresponds to a T score -2.5of an d Z score of -0.8. Mean femoral neck bone mineral density measures 0.685 g/cm2. This corresponds to a T score of -2.6 an d Z score of -0.9. XR/XR DEXA axial skeleton* [id number] IMPRESSION: Osteopenia lumbar spine. Osteoporosis femoral necks. Patient's FRAX calculated 10 year probability for major osteoporotic fracture i s 54.4 % and osteoporotic hip fracture is 39.8%. Bone mineral density increased + 8.0% since 2019. Bone mineralization increased + 1.5% in the femoral necks since 2020.
== END 2022-07-27 12:48 | disposition home or self-care (01) ==
LOC: RAD 12:48
PROVIDERS: PCP Family Medicine; Visit Provider Internal Medicine Rheumatology
DX: M81.0 Age-related osteoporosis without current pathological fracture (principal)
CPT/HCPCS: 77080

== ENCOUNTER 2022-08-24 09:36 | Outpatient (CLI) | payer MEDICARE, SELFPAY ==
[2022-08-24 09:43] VITALS: BP 144/74; PULSE 87; RESP 18; TEMP 36.1; O2SAT 97
[2022-08-24] MEDS: acetaminophen 325 mg Tablet 650 MG PO (10:08)
[2022-08-24] MEDS: sodium chloride 0.9% 250 ML 50 ML IV (10:08)
[2022-08-24 11:42] VITALS: BP 145/64; PULSE 84; RESP 18; TEMP 36.2; O2SAT 96
== END 2022-08-24 09:37 | disposition home or self-care (01) ==
PROVIDERS: PCP Family Medicine; Visit Provider Internal Medicine Rheumatology
DX: M05.79 Rheumatoid arthritis with rheumatoid factor of multiple sites without organ or systems involvement (principal)
CPT/HCPCS: 96365; 96375; J2920; J3262; J7050

== ENCOUNTER → 2022-08-31 13:39 | Outpatient (BNVA) | payer MEDICARE, SELFPAY | PROVIDERS: PCP Family Medicine; Visit Provider Internal Medicine Rheumatology | DX: M05.79 Rheumatoid arthritis with rheumatoid factor of multiple sites without organ or systems involvement (principal); M81.0 Age-related osteoporosis without current pathological fracture; M19.041 Primary osteoarthritis, right hand; M19.042 Primary osteoarthritis, left hand; Z71.89 Other specified counseling; Z87.310 Personal history of (healed) osteoporosis fracture | CPT/HCPCS: 99214 ==

== ENCOUNTER 2022-09-21 09:34 | Outpatient (CLI) | payer MEDICARE, SELFPAY ==
[2022-09-21 09:46] VITALS: BP 138/83; PULSE 82; RESP 18; TEMP 36.1; O2SAT 98
[2022-09-21 10:15] LABS: Basophils # 0.1 10^3/uL (0.0-0.1); Basophils % 1.2 %; Eosinophils # 0.3 10^3/uL (0.0-0.8); Eosinophils % 7.5 %; Hematocrit 40.8 % (37.0-47.0); Hemoglobin 13.6 g/dL (11.5-15.3); Lymphocytes # 1.1 10^3/uL (0.8-4.8); Lymphocytes % 25.8 %; Mean Corpuscular HGB Conc 33.3 g/dL (30.0-36.0); Mean Corpuscular Hemoglobin 35.8 pg (28.0-34.0); Mean Corpuscular Volume 107.4 fl (81-99); Mean Platelet Volume 10.9 fL (7.4-10.4); Monocytes # 0.6 10^3/uL (0.2-0.9); Monocytes % 14.8 %; Neutrophils # 2.15 10^3/uL (1.8-7.7); Neutrophils % 50.5 %; Nucleated Red Blood Cells % 0 %; Platelet Count 171 10^3/cmm (130-400); Red Cell Distribution Width 11.8 % (12.1-15.1); White Blood Count 4.3 10^3/uL (4.0-10.0)
[2022-09-21 10:16] LABS: Erythrocyte Sedimentation Rate 2 mm/hr (0-15)
[2022-09-21] MEDS: sodium chloride 0.9% 250 ML 50 ML IV (10:48)
[2022-09-21] MEDS: acetaminophen 325 mg Tablet 650 MG PO (10:48)
[2022-09-21 10:51] LABS: Alanine Aminotransferase 21 U/L (0-33); Albumin Level 4.1 g/dL (3.5-5.2); Alkaline Phosphatase 82 U/L (35-105); Aspartate Amino Transferase 18 U/L (0-32); Total Bilirubin 0.4 mg/dL (0.15-1.2); Total Protein 7.1 g/dL (6.6-8.7)
[2022-09-21 12:09] VITALS: BP 148/69; PULSE 80; RESP 18; TEMP 36.2; O2SAT 97
== END 2022-09-21 09:35 | disposition home or self-care (01) ==
LOC: ONCMED 09:35
PROVIDERS: PCP Family Medicine; Visit Provider Internal Medicine Rheumatology
DX: M05.79 Rheumatoid arthritis with rheumatoid factor of multiple sites without organ or systems involvement (principal)
CPT/HCPCS: 80076; 82565; 85025; 85651; 96365; 96375; J2920; J3262; J7050

== ENCOUNTER 2022-10-20 09:04 | Outpatient (CLI) | payer MEDICARE, SELFPAY ==
[2022-10-20 09:53] VITALS: BP 134/85; PULSE 83; RESP 18; TEMP 36.4; O2SAT 97
[2022-10-20] MEDS: sodium chloride 0.9% 250 ML 50 ML IV (10:17)
[2022-10-20] MEDS: acetaminophen 325 mg Tablet 650 MG PO (10:18)
[2022-10-20 11:45] VITALS: BP 140/85; PULSE 76; RESP 18; TEMP 36.2; O2SAT 97
== END 2022-10-20 09:05 | disposition home or self-care (01) ==
LOC: ONCMED 09:05
PROVIDERS: PCP Family Medicine; Visit Provider Internal Medicine Rheumatology
DX: M05.79 Rheumatoid arthritis with rheumatoid factor of multiple sites without organ or systems involvement (principal)
CPT/HCPCS: 96365; 96375; J2920; J3262; J7050

== ENCOUNTER 2022-11-23 09:14 | Outpatient (CLI) | payer MEDICARE, SELFPAY ==
[2022-11-23 09:28] VITALS: BP 129/62; PULSE 81; RESP 18; TEMP 36.4; O2SAT 97
[2022-11-23 09:55] LABS: Basophils % 0.7 %; Eosinophils # 0.3 10^3/uL (0.0-0.8); Eosinophils % 6.5 %; Hematocrit 41.2 % (37.0-47.0); Lymphocytes # 1.1 10^3/uL (0.8-4.8); Lymphocytes % 24.3 %; Mean Corpuscular Hemoglobin 36.2 pg (28.0-34.0); Mean Corpuscular Volume 106.5 fl (81-99); Mean Platelet Volume 10.7 fL (7.4-10.4); Monocytes # 0.7 10^3/uL (0.2-0.9); Neutrophils # 2.46 10^3/uL (1.8-7.7); Neutrophils % 53.3 %; Nucleated Red Blood Cells % 0 %; Platelet Count 168 10^3/cmm (130-400); Red Blood Count 3.87 10^6/uL (4.1-5.3); Red Cell Distribution Width 11.8 % (12.1-15.1); White Blood Count 4.6 10^3/uL (4.0-10.0)
[2022-11-23] MEDS: sodium chloride 0.9% 250 ML 50 ML IV (09:57)
[2022-11-23] MEDS: acetaminophen 325 mg Tablet 650 MG PO (09:57)
[2022-11-23 10:04] LABS: Erythrocyte Sedimentation Rate 3 mm/hr (0-15)
[2022-11-23] MEDS: tocilizumab 400 MG, tocilizumab 200 MG, tocilizumab 20 MG in sodium chloride 0.9% (100 ... 100 MG IV (10:07)
[2022-11-23 10:15] LABS: Alanine Aminotransferase 20 U/L (0-33); Albumin Level 4.1 g/dL (3.5-5.2); Alkaline Phosphatase 70 U/L (35-105); Aspartate Amino Transferase 22 U/L (0-32); Globulin 2.7 g/dL (1.3-4.6); Total Bilirubin 0.7 mg/dL (0.15-1.2); Total Protein 6.8 g/dL (6.6-8.7)
[2022-11-23 11:11] VITALS: BP 139/70; PULSE 75; RESP 18; TEMP 36.4; O2SAT 95
== END 2022-11-23 09:15 | disposition home or self-care (01) ==
LOC: ONCMED 09:14
PROVIDERS: PCP Family Medicine; Visit Provider Internal Medicine Rheumatology
DX: M05.79 Rheumatoid arthritis with rheumatoid factor of multiple sites without organ or systems involvement (principal); Z79.899 Other long term (current) drug therapy
CPT/HCPCS: 80076; 82565; 85025; 85651; 96365; 96375; J2920; J3262; J7050

== ENCOUNTER 2022-12-21 09:06 | Outpatient (CLI) | payer MEDICARE, SELFPAY ==
[2022-12-21 09:20] VITALS: BP 137/69; PULSE 76; RESP 18; TEMP 36.3; O2SAT 98; BMI 34.9
[2022-12-21] MEDS: acetaminophen 325 mg Tablet 650 MG PO (09:52)
[2022-12-21] MEDS: sodium chloride 0.9% 250 ML 50 ML IV (09:52)
[2022-12-21 11:26] VITALS: BP 138/63; PULSE 79; RESP 18; TEMP 36.3; O2SAT 98
== END 2022-12-21 09:07 | disposition home or self-care (01) ==
PROVIDERS: PCP Family Medicine; Visit Provider Internal Medicine Rheumatology
DX: M05.79 Rheumatoid arthritis with rheumatoid factor of multiple sites without organ or systems involvement (principal)
CPT/HCPCS: 96365; 96375; J2920; J3262; J7050

== ENCOUNTER 2023-01-19 12:30 | Oncology outpatient (recurring) (ONCR) | payer MEDICARE, SELFPAY ==
[2023-01-19] MEDS: sodium chloride 0.9% 250 ML IV (13:05)
[2023-01-19] MEDS: acetaminophen 325 mg Tablet 650 MG PO (13:05)
[2023-01-19 13:12] VITALS: BP 130/69; PULSE 81; RESP 18; TEMP 36.4
[2023-01-19 14:44] VITALS: BP 141/71; PULSE 74; RESP 16; TEMP 36.3; O2SAT 98
== END 2023-01-29 23:59 | disposition home or self-care (01) ==
PROVIDERS: PCP Family Medicine; Visit Provider Internal Medicine Rheumatology
DX: M05.79 Rheumatoid arthritis with rheumatoid factor of multiple sites without organ or systems involvement (principal); Z79.899 Other long term (current) drug therapy
CPT/HCPCS: 96365; 96375; J2920; J3262; J7050

== ENCOUNTER 2023-02-16 09:28 | Oncology outpatient (recurring) (ONCR) | payer MEDICARE, SELFPAY ==
[2023-02-16 09:46] VITALS: BP 116/80; PULSE 67; RESP 16; TEMP 35.7; O2SAT 96
[2023-02-16] MEDS: sodium chloride 0.9% 250 ML 75 ML IV (09:58)
[2023-02-16] MEDS: acetaminophen 325 mg Tablet 650 MG PO (09:58)
[2023-02-16] MEDS: tocilizumab 400 MG, tocilizumab 200 MG, tocilizumab 20 MG in sodium chloride 0.9% (100 ... 131 MG IV (10:13)
[2023-02-16 11:08] VITALS: BP 143/83; PULSE 79; RESP 16; TEMP 36.4; O2SAT 96
== END 2023-02-28 23:59 | disposition home or self-care (01) ==
PROVIDERS: PCP Family Medicine; Visit Provider Internal Medicine Rheumatology
DX: M05.89 Other rheumatoid arthritis with rheumatoid factor of multiple sites (principal)
CPT/HCPCS: 96375; 96413; J2920; J3262; J7050

== ENCOUNTER 2023-03-23 09:25 | Oncology outpatient (recurring) (ONCR) | payer MEDICARE, SELFPAY ==
[2023-03-23 10:02] VITALS: BP 136/63; PULSE 79; RESP 18; TEMP 36.4; O2SAT 96
[2023-03-23 10:10] LABS: Basophils # 0.1 10^3/uL (0.0-0.1); Basophils % 1.2 %; Eosinophils # 0.4 10^3/uL (0.0-0.8); Eosinophils % 8.4 %; Hematocrit 41.5 % (37.0-47.0); Hemoglobin 13.9 g/dL (11.5-15.3); Lymphocytes # 1.4 10^3/uL (0.8-4.8); Lymphocytes % 27.6 %; Mean Corpuscular HGB Conc 33.5 g/dL (30.0-36.0); Mean Corpuscular Hemoglobin 35.6 pg (28.0-34.0); Mean Corpuscular Volume 106.4 fl (81-99); Mean Platelet Volume 10.7 fL (7.4-10.4); Monocytes # 0.7 10^3/uL (0.2-0.9); Monocytes % 14.1 %; Neutrophils # 2.48 10^3/uL (1.8-7.7); Neutrophils % 48.5 %; Nucleated Red Blood Cells % 0 %; Platelet Count 179 10^3/cmm (130-400); Red Cell Distribution Width 11.6 % (12.1-15.1); White Blood Count 5.1 10^3/uL (4.0-10.0)
[2023-03-23] MEDS: sodium chloride 0.9% 250 ML 50 ML IV (10:15)
[2023-03-23] MEDS: acetaminophen 325 mg Tablet 650 MG PO (10:16)
[2023-03-23] MEDS: dexamethasone 10 mg/mL INJ 6 MG IVP (10:17)
[2023-03-23 10:25] LABS: Alanine Aminotransferase 18 U/L (0-33); Albumin Level 4.1 g/dL (3.5-5.2); Alkaline Phosphatase 80 U/L (35-105); Aspartate Amino Transferase 18 U/L (0-32); Globulin 2.5 g/dL (1.3-4.6); Total Bilirubin 0.8 mg/dL (0.15-1.2); Total Protein 6.6 g/dL (6.6-8.7)
[2023-03-23 10:38] LABS: Erythrocyte Sedimentation Rate 4 mm/hr (0-15)
[2023-03-23 12:17] VITALS: BP 135/83; PULSE 69; RESP 18; TEMP 36.3; O2SAT 97
== END 2023-03-31 23:59 | disposition home or self-care (01) ==
LOC: ONCMED 09:26
PROVIDERS: PCP Family Medicine; Visit Provider Internal Medicine Rheumatology
DX: M05.89 Other rheumatoid arthritis with rheumatoid factor of multiple sites (principal); M19.042 Primary osteoarthritis, left hand; M19.041 Primary osteoarthritis, right hand
CPT/HCPCS: 80076; 82565; 85025; 85651; 96361; 96365; 96375; J1100; J3262; J7050

== ENCOUNTER 2023-05-06 09:32 | Oncology outpatient (recurring) (ONCR) | payer MEDICARE, SELFPAY ==
[2023-05-06 09:39] VITALS: BP 118/75; PULSE 86; TEMP 36.4; O2SAT 96
[2023-05-06] MEDS: acetaminophen 325 mg Tablet 650 MG PO (10:33)
[2023-05-06] MEDS: sodium chloride 0.9% 250 ML 100 ML IV (10:34)
[2023-05-06] MEDS: dexamethasone 10 mg/mL INJ 6 MG IVP (10:35)
[2023-05-06 11:57] VITALS: BP 133/77; PULSE 81; TEMP 36.5; O2SAT 96
== END 2023-05-31 23:59 | disposition home or self-care (01) ==
PROVIDERS: PCP Family Medicine; Visit Provider Internal Medicine Rheumatology
DX: M06.9 Rheumatoid arthritis, unspecified (principal)
CPT/HCPCS: 96375; 96413; J1100; J3262; J7050

== ENCOUNTER 2023-06-22 08:51 | Oncology outpatient (recurring) (ONCR) | payer MEDICARE, SELFPAY ==
[2023-06-22 09:15] VITALS: BP 138/75; PULSE 83; RESP 16; TEMP 36.5; O2SAT 97
[2023-06-22] MEDS: methylPREDNISolone sod succ 40 mg SDV IVP (09:33)
[2023-06-22] MEDS: sodium chloride 0.9% 250 ML 75 ML IV (09:33)
[2023-06-22] MEDS: acetaminophen 325 mg Tablet 650 MG PO (09:33)
[2023-06-22] MEDS: TOCILIZUMAB IV (09:57)
[2023-06-22] MEDS: SODIUM CHLORIDE 0.9% IV (09:57)
[2023-06-22 11:15] VITALS: BP 120/69; PULSE 75; RESP 16; TEMP 36.5; O2SAT 95
== END 2023-07-01 23:59 | disposition home or self-care (01) ==
PROVIDERS: PCP Family Medicine; Visit Provider Internal Medicine Rheumatology
DX: M05.89 Other rheumatoid arthritis with rheumatoid factor of multiple sites (principal)
CPT/HCPCS: 96375; 96413; J2920; J3262; J7050

== ENCOUNTER 2023-07-20 09:29 | Oncology outpatient (recurring) (ONCR) | payer MEDICARE, SELFPAY ==
[2023-07-20 09:50] VITALS: BP 146/65; PULSE 71; RESP 16; TEMP 36.3; O2SAT 94
[2023-07-20] MEDS: acetaminophen 325 mg Tablet 650 MG PO (10:03)
[2023-07-20] MEDS: sodium chloride 0.9% 250 ML 75 ML IV (10:05)
[2023-07-20] MEDS: methylPREDNISolone sod succ 40 mg SDV IVP (10:06)
[2023-07-20 11:34] VITALS: BP 150/66; PULSE 74; RESP 17; TEMP 36.3; O2SAT 95
== END 2023-07-31 23:59 | disposition home or self-care (01) ==
LOC: ONCMED 09:30
PROVIDERS: PCP Family Medicine; Visit Provider Internal Medicine Rheumatology
DX: M05.89 Other rheumatoid arthritis with rheumatoid factor of multiple sites (principal)
CPT/HCPCS: 96375; 96413; J2920; J3262; J7050

== ENCOUNTER 2023-08-17 09:13 | Oncology outpatient (recurring) (ONCR) | payer MEDICARE, SELFPAY ==
[2023-08-17 09:45] VITALS: BP 148/76; PULSE 92; RESP 16; TEMP 36.6; O2SAT 99
[2023-08-17] MEDS: sodium chloride 0.9% 250 ML 75 ML IV (10:07)
[2023-08-17] MEDS: methylPREDNISolone sod succ 40 mg SDV IVP (10:08)
[2023-08-17] MEDS: acetaminophen 325 mg Tablet 650 MG PO (10:08)
[2023-08-17 10:28] LABS: Basophils # 0.1 10^3/uL (0.0-0.1); Basophils % 1.2 %; Eosinophils # 0.4 10^3/uL (0.0-0.8); Eosinophils % 6.8 %; Hematocrit 41.3 % (36-47); Lymphocytes % 19.9 %; Mean Corpuscular HGB Conc 33.4 g/dL (30-55); Mean Corpuscular Hemoglobin 35.6 pg (27-33); Mean Corpuscular Volume 106.4 fl (85-98); Mean Platelet Volume 11.1 fL (7.4-10.4); Monocytes # 0.6 10^3/uL (0.2-0.9); Monocytes % 12.4 %; Neutrophils # 3.09 10^3/uL (1.8-7.7); Neutrophils % 59.5 %; Nucleated Red Blood Cells % 0 %; Platelet Count 169 10^3/cmm (157-399); Red Blood Count 3.88 10^6/uL (3.85-5.65); Red Cell Distribution Width 11.9 % (12.1-15.1); White Blood Count 5.18 10^3/uL (3.29-11.43)
[2023-08-17 10:51] LABS: Alanine Aminotransferase 17 U/L (0-33); Albumin Level 4.2 g/dL (3.5-5.2); Alkaline Phosphatase 73 U/L (35-105); Aspartate Amino Transferase 18 U/L (0-32); Globulin 2.5 g/dL (1.3-4.6); Total Bilirubin 0.5 mg/dL (0.15-1.2); Total Protein 6.7 g/dL (6.6-8.7)
[2023-08-17 11:40] VITALS: BP 131/70; PULSE 85; RESP 16; TEMP 36.5; O2SAT 98
== END 2023-08-31 23:59 | disposition home or self-care (01) ==
LOC: ONCMED 09:13
PROVIDERS: PCP Family Medicine; Visit Provider Internal Medicine Rheumatology
DX: M05.89 Other rheumatoid arthritis with rheumatoid factor of multiple sites (principal); M19.041 Primary osteoarthritis, right hand; M19.042 Primary osteoarthritis, left hand
CPT/HCPCS: 80076; 82565; 85025; 86140; 96375; 96413; J2920; J3262; J7050

== ENCOUNTER 2023-09-14 09:02 | Oncology outpatient (recurring) (ONCR) | payer MEDICARE, SELFPAY ==
[2023-09-14 09:40] VITALS: BP 138/60; PULSE 86; RESP 16; O2SAT 97
[2023-09-14] MEDS: acetaminophen 325 mg Tablet 650 MG PO (09:45)
[2023-09-14] MEDS: methylPREDNISolone sod succ 40 mg/mL INJ IVP (09:45)
[2023-09-14] MEDS: sodium chloride 0.9% 250 ML 75 ML IV (09:45)
[2023-09-14 11:02] VITALS: BP 130/67; PULSE 78; O2SAT 96
== END 2023-09-30 23:59 | disposition home or self-care (01) ==
PROVIDERS: PCP Family Medicine; Visit Provider Internal Medicine Rheumatology
DX: M05.89 Other rheumatoid arthritis with rheumatoid factor of multiple sites (principal)
CPT/HCPCS: 96375; 96413; J2920; J3262; J7050

== ENCOUNTER 2023-10-12 08:57 | Oncology outpatient (recurring) (ONCR) | payer MEDICARE, SELFPAY ==
[2023-10-12 09:32] VITALS: BP 127/69; PULSE 84; RESP 17; TEMP 36.4; O2SAT 97
[2023-10-12] MEDS: acetaminophen 325 mg Tablet 650 MG PO (09:58)
[2023-10-12] MEDS: methylPREDNISolone sod succ 40 mg/mL INJ IVP (09:58)
[2023-10-12] MEDS: sodium chloride 0.9% 250 ML 75 ML IV (09:59)
[2023-10-12 10:13] LABS: Basophils # 0.1 10^3/uL (0.0-0.1); Basophils % 1.3 %; Eosinophils # 0.2 10^3/uL (0.0-0.8); Eosinophils % 3.9 %; Hematocrit 41.1 % (36-47); Lymphocytes # 1.3 10^3/uL (0.8-4.8); Lymphocytes % 23.6 %; Mean Corpuscular HGB Conc 33.3 g/dL (30-55); Mean Corpuscular Hemoglobin 35.6 pg (27-33); Mean Corpuscular Volume 106.8 fl (85-98); Mean Platelet Volume 10.5 fL (7.4-10.4); Monocytes # 0.7 10^3/uL (0.2-0.9); Monocytes % 12.2 %; Neutrophils # 3.29 10^3/uL (1.8-7.7); Neutrophils % 58.8 %; Nucleated Red Blood Cells % 0 %; Platelet Count 168 10^3/cmm (157-399); Red Blood Count 3.85 10^6/uL (3.85-5.65); Red Cell Distribution Width 11.4 % (12.1-15.1); White Blood Count 5.59 10^3/uL (3.29-11.43)
[2023-10-12] MEDS: TOCILIZUMAB IV (10:15)
[2023-10-12] MEDS: SODIUM CHLORIDE 0.9% IV (10:15)
[2023-10-12 10:37] LABS: Alanine Aminotransferase 14 U/L (0-33); Albumin Level 4.3 g/dL (3.5-5.2); Alkaline Phosphatase 91 U/L (35-105); Aspartate Amino Transferase 14 U/L (0-32); Globulin 2.7 g/dL (1.3-4.6); Total Bilirubin 0.6 mg/dL (0.15-1.2)
[2023-10-12 11:26] VITALS: PULSE 76; RESP 17; TEMP 36.5; O2SAT 97
[2023-10-12 11:28] VITALS: BP 135/69
== END 2023-10-31 23:59 | disposition home or self-care (01) ==
PROVIDERS: PCP Family Medicine; Visit Provider Internal Medicine Rheumatology
DX: M05.89 Other rheumatoid arthritis with rheumatoid factor of multiple sites (principal)
CPT/HCPCS: 80076; 82565; 85025; 86140; 96365; 96375; J2920; J3262; J7050

== ENCOUNTER 2023-11-23 09:13 | Oncology outpatient (recurring) (ONCR) | payer MEDICARE, SELFPAY ==
[2023-11-23 09:28] VITALS: BP 135/78; PULSE 90; RESP 17; TEMP 35.7; O2SAT 98
[2023-11-23] MEDS: acetaminophen 325 mg Tablet 650 MG PO (09:50)
[2023-11-23] MEDS: sodium chloride 0.9% 250 ML 75 ML IV (09:52)
[2023-11-23] MEDS: methylPREDNISolone sod succ 40 mg/mL INJ IVP (09:55)
[2023-11-23] MEDS: SODIUM CHLORIDE 0.9% IV (10:20)
[2023-11-23] MEDS: TOCILIZUMAB IV (10:20)
[2023-11-23 11:32] VITALS: BP 133/80; PULSE 77; RESP 17; O2SAT 96
== END 2023-12-01 23:59 | disposition home or self-care (01) ==
LOC: ONCMED 09:13
PROVIDERS: PCP Family Medicine; Visit Provider Internal Medicine Rheumatology
DX: M05.89 Other rheumatoid arthritis with rheumatoid factor of multiple sites (principal)
CPT/HCPCS: 96413; J2920; J3262; J7050

== ENCOUNTER 2023-12-21 08:44 | Oncology outpatient (recurring) (ONCR) | payer MEDICARE, SELFPAY ==
[2023-12-21 09:29] LABS: Basophils # 0.1 10^3/uL (0.0-0.1); Basophils % 1.2 %; Eosinophils # 0.4 10^3/uL (0.0-0.8); Eosinophils % 8.4 %; Hematocrit 38.7 % (36-47); Lymphocytes # 1.3 10^3/uL (0.8-4.8); Lymphocytes % 24.7 %; Mean Corpuscular HGB Conc 33.9 g/dL (30-55); Mean Corpuscular Hemoglobin 36.2 pg (27-33); Mean Corpuscular Volume 106.9 fl (85-98); Mean Platelet Volume 10.8 fL (7.4-10.4); Monocytes # 0.7 10^3/uL (0.2-0.9); Monocytes % 13.5 %; Neutrophils # 2.66 10^3/uL (1.8-7.7); Nucleated Red Blood Cells % 0 %; Platelet Count 179 10^3/cmm (157-399); Red Blood Count 3.62 10^6/uL (3.85-5.65); Red Cell Distribution Width 11.3 % (12.1-15.1); White Blood Count 5.11 10^3/uL (3.29-11.43)
[2023-12-21] MEDS: acetaminophen 325 mg Tablet 650 MG PO (09:39)
[2023-12-21] MEDS: sodium chloride 0.9% 250 ML 75 ML IV (09:41)
[2023-12-21 09:45] VITALS: BP 120/80; PULSE 73; RESP 17; O2SAT 98
[2023-12-21 09:47] LABS: Alanine Aminotransferase 19 U/L (0-33); Albumin Level 4.1 g/dL (3.5-5.2); Alkaline Phosphatase 88 U/L (35-105); Aspartate Amino Transferase 18 U/L (0-32); Creatinine Clr Calc Pharmacy 64.9214; Globulin 2.5 g/dL (1.3-4.6); Total Bilirubin 0.4 mg/dL (0.15-1.2); Total Protein 6.6 g/dL (6.6-8.7)
[2023-12-21] MEDS: methylPREDNISolone sod succ 125 mg/2 mL INJ 40 MG IVP (09:47)
[2023-12-21] MEDS: TOCILIZUMAB IV (10:11)
[2023-12-21] MEDS: SODIUM CHLORIDE 0.9% IV (10:11)
[2023-12-21 11:15] VITALS: BP 122/77; PULSE 80
== END 2023-12-30 23:59 | disposition home or self-care (01) ==
PROVIDERS: PCP Family Medicine; Visit Provider Internal Medicine Rheumatology
DX: M05.89 Other rheumatoid arthritis with rheumatoid factor of multiple sites (principal)
CPT/HCPCS: 80076; 82565; 85025; 86140; 96375; 96413; J2930; J3262; J7050

== ENCOUNTER 2024-01-18 08:24 | Oncology outpatient (recurring) (ONCR) | payer MEDICARE, SELFPAY ==
[2024-01-18 08:30] VITALS: BP 149/68; PULSE 87; RESP 16; TEMP 36.4; O2SAT 95
[2024-01-18] MEDS: sodium chloride 0.9% 250 ML 75 ML IV (08:56)
[2024-01-18] MEDS: acetaminophen 325 mg Tablet 650 MG PO (08:56)
[2024-01-18] MEDS: methylPREDNISolone sod succ 125 mg/2 mL INJ 40 MG IVP (08:56)
[2024-01-18] MEDS: TOCILIZUMAB IV (09:32)
[2024-01-18] MEDS: SODIUM CHLORIDE 0.9% IV (09:32)
== END 2024-01-30 23:59 | disposition home or self-care (01) ==
LOC: ONCMED 08:25
PROVIDERS: PCP Family Medicine; Visit Provider Internal Medicine Rheumatology
DX: M05.89 Other rheumatoid arthritis with rheumatoid factor of multiple sites (principal)
CPT/HCPCS: 96375; 96413; J2930; J3262; J7050

== ENCOUNTER 2024-02-15 12:44 | Oncology outpatient (recurring) (ONCR) | payer MEDICARE, SELFPAY ==
[2024-02-15] MEDS: sodium chloride 0.9% 250 ML 75 ML IV (13:24)
[2024-02-15] MEDS: methylPREDNISolone sod succ 125 mg/2 mL INJ 40 MG IVP (13:25)
[2024-02-15] MEDS: acetaminophen 325 mg Tablet 650 MG PO (13:25)
[2024-02-15 13:27] LABS: Basophils % 0.3 %; Eosinophils # 0.3 10^3/uL (0.0-0.8); Eosinophils % 3.9 %; Lymphocytes # 1.4 10^3/uL (0.8-4.8); Lymphocytes % 18.8 %; Mean Corpuscular HGB Conc 33.4 g/dL (30-55); Mean Corpuscular Hemoglobin 35.5 pg (27-33); Mean Corpuscular Volume 106.1 fl (85-98); Mean Platelet Volume 10.5 fL (7.4-10.4); Monocytes # 0.8 10^3/uL (0.2-0.9); Monocytes % 10.6 %; Neutrophils # 4.78 10^3/uL (1.8-7.7); Neutrophils % 66.3 %; Nucleated Red Blood Cells % 0 %; Platelet Count 168 10^3/cmm (157-399); Red Blood Count 3.58 10^6/uL (3.85-5.65); Red Cell Distribution Width 11.6 % (12.1-15.1)
[2024-02-15 13:56] LABS: Alanine Aminotransferase 16 U/L (0-33); Albumin Level 4.3 g/dL (3.5-5.2); Alkaline Phosphatase 82 U/L (35-105); Aspartate Amino Transferase 18 U/L (0-32); Globulin 2.7 g/dL (1.3-4.6); Total Bilirubin 0.5 mg/dL (0.15-1.2)
[2024-02-15] MEDS: SODIUM CHLORIDE 0.9% IV (14:05)
[2024-02-15] MEDS: TOCILIZUMAB IV (14:05)
== END 2024-02-29 23:59 | disposition home or self-care (01) ==
PROVIDERS: PCP Family Medicine; Visit Provider Internal Medicine Rheumatology
DX: M05.89 Other rheumatoid arthritis with rheumatoid factor of multiple sites (principal)
CPT/HCPCS: 80076; 82565; 85025; 86140; 96375; 96413; J2919; J3262; J7050

== ENCOUNTER 2024-03-14 13:08 | Oncology outpatient (recurring) (ONCR) | payer MEDICARE, SELFPAY ==
[2024-03-14 13:32] VITALS: BP 143/76; PULSE 75; RESP 16; TEMP 36.6; O2SAT 96
[2024-03-14] MEDS: acetaminophen 325 mg Tablet 650 MG PO (13:55)
[2024-03-14] MEDS: methylPREDNISolone sod succ 125 mg/2 mL INJ 40 MG IVP (13:56)
[2024-03-14] MEDS: TOCILIZUMAB IV (14:22)
[2024-03-14] MEDS: SODIUM CHLORIDE 0.9% IV (14:22)
[2024-03-14 15:24] VITALS: BP 133/66; PULSE 62; RESP 17; TEMP 36.6; O2SAT 97
== END 2024-03-31 23:59 | disposition home or self-care (01) ==
LOC: ONCMED 13:08
PROVIDERS: PCP Family Medicine; Visit Provider Internal Medicine Rheumatology
DX: M05.89 Other rheumatoid arthritis with rheumatoid factor of multiple sites (principal)
CPT/HCPCS: 96413; J2919; J3262

== ENCOUNTER 2024-04-11 12:53 | Oncology outpatient (recurring) (ONCR) | payer MEDICARE, SELFPAY ==
[2024-04-11 13:13] VITALS: BP 142/76; PULSE 84; RESP 16; TEMP 36.8; O2SAT 96
[2024-04-11 13:35] LABS: Eosinophils # 0.2 10^3/uL (0.0-0.8); Eosinophils % 5.3 %; Hematocrit 38.2 % (36-47); Lymphocytes # 1.2 10^3/uL (0.8-4.8); Lymphocytes % 28.7 %; Mean Corpuscular HGB Conc 34.6 g/dL (30-55); Mean Corpuscular Hemoglobin 35.9 pg (27-33); Mean Corpuscular Volume 103.8 fl (85-98); Mean Platelet Volume 10.9 fL (7.4-10.4); Monocytes # 0.6 10^3/uL (0.2-0.9); Monocytes % 13.5 %; Neutrophils # 2.12 10^3/uL (1.8-7.7); Neutrophils % 51.3 %; Nucleated Red Blood Cells % 0 %; Platelet Count 162 10^3/cmm (157-399); Red Blood Count 3.68 10^6/uL (3.85-5.65); Red Cell Distribution Width 11.7 % (12.1-15.1); White Blood Count 4.14 10^3/uL (3.29-11.43)
[2024-04-11] MEDS: sodium chloride 0.9% 250 ML 75 ML IV (13:35)
[2024-04-11] MEDS: acetaminophen 325 mg Tablet 650 MG PO (13:37)
[2024-04-11] MEDS: methylPREDNISolone sod succ 125 mg/2 mL INJ 40 MG IVP (13:38)
[2024-04-11 14:01] LABS: Alanine Aminotransferase 16 U/L (0-33); Albumin Level 4.4 g/dL (3.5-5.2); Alkaline Phosphatase 72 U/L (35-105); Aspartate Amino Transferase 21 U/L (0-32); Globulin 2.6 g/dL (1.3-4.6); Total Bilirubin 0.5 mg/dL (0.15-1.2)
[2024-04-11] MEDS: SODIUM CHLORIDE 0.9% IV (14:08)
[2024-04-11] MEDS: TOCILIZUMAB IV (14:08)
[2024-04-11 15:15] VITALS: BP 135/77; PULSE 68; RESP 18; TEMP 36.6; O2SAT 95
== END 2024-04-30 23:59 | disposition home or self-care (01) ==
LOC: ONCMED 12:53
PROVIDERS: PCP Family Medicine; Visit Provider Internal Medicine Rheumatology
DX: M05.79 Rheumatoid arthritis with rheumatoid factor of multiple sites without organ or systems involvement (principal)
CPT/HCPCS: 80076; 82565; 85025; 86140; 96375; 96413; J2919; J3262; J7050

== ENCOUNTER → 2024-05-15 12:50 | Outpatient (BNVA) | payer MEDICARE, SELFPAY | PROVIDERS: PCP Family Medicine; Visit Provider Internal Medicine Rheumatology | DX: M05.79 Rheumatoid arthritis with rheumatoid factor of multiple sites without organ or systems involvement (principal); M81.0 Age-related osteoporosis without current pathological fracture; M19.041 Primary osteoarthritis, right hand; M19.042 Primary osteoarthritis, left hand; Z71.85 Encounter for immunization safety counseling; S22.059A Unspecified fracture of T5-T6 vertebra, initial encounter for closed fracture; S22.069A Unspecified fracture of T7-T8 vertebra, initial encounter for closed fracture; S22.079A Unspecified fracture of T9-T10 vertebra, initial encounter for closed fracture; S22.089A Unspecified fracture of T11-T12 vertebra, initial encounter for closed fracture; X58.XXXA Exposure to other specified factors, initial encounter | CPT/HCPCS: 99214 ==

== ENCOUNTER 2024-05-19 09:54 | Oncology outpatient (recurring) (ONCR) | payer MEDICARE, SELFPAY ==
[2024-05-19 10:16] VITALS: BP 129/59; PULSE 83; O2SAT 94
[2024-05-19] MEDS: sodium chloride 0.9% 250 ML 75 ML IV (10:33)
[2024-05-19] MEDS: acetaminophen 325 mg Tablet 650 MG PO (10:33)
[2024-05-19] MEDS: methylPREDNISolone sod succ 125 mg/2 mL INJ 40 MG IVP (10:35)
[2024-05-19] MEDS: TOCILIZUMAB IV (11:01)
[2024-05-19] MEDS: SODIUM CHLORIDE 0.9% IV (11:01)
[2024-05-19 12:22] VITALS: BP 127/56; PULSE 77; RESP 17; TEMP 36.3; O2SAT 95
== END 2024-05-31 23:59 | disposition home or self-care (01) ==
PROVIDERS: PCP Family Medicine; Visit Provider Internal Medicine Rheumatology
DX: Z51.12 Encounter for antineoplastic immunotherapy (principal); M05.89 Other rheumatoid arthritis with rheumatoid factor of multiple sites; Z79.899 Other long term (current) drug therapy
CPT/HCPCS: 96375; 96413; J2919; J3262; J7050

== ENCOUNTER 2024-06-22 10:41 | Oncology outpatient (recurring) (ONCR) | payer MEDICARE, SELFPAY ==
[2024-06-22 11:41] VITALS: BP 144/64; PULSE 85; RESP 16; TEMP 36.5; O2SAT 96
[2024-06-22] MEDS: sodium chloride 0.9% 250 ML 75 ML IV (11:57)
[2024-06-22] MEDS: acetaminophen 325 mg Tablet 650 MG PO (11:59)
[2024-06-22] MEDS: methylPREDNISolone sod succ 125 mg/2 mL INJ 40 MG IVP (11:59)
[2024-06-22] MEDS: SODIUM CHLORIDE 0.9% IV (12:35)
[2024-06-22] MEDS: TOCILIZUMAB IV (12:35)
[2024-06-22 13:43] VITALS: BP 134/73; PULSE 74; RESP 16; TEMP 36.2; O2SAT 96
== END 2024-07-01 23:55 | disposition home or self-care (01) ==
PROVIDERS: PCP Family Medicine; Visit Provider Internal Medicine Rheumatology
DX: M05.79 Rheumatoid arthritis with rheumatoid factor of multiple sites without organ or systems involvement (principal); Z79.899 Other long term (current) drug therapy
CPT/HCPCS: 96375; 96413; J2919; J3262; J7050

== ENCOUNTER 2024-07-20 09:20 | Oncology outpatient (recurring) (ONCR) | payer MEDICARE, SELFPAY ==
[2024-07-20 09:49] VITALS: BP 142/73; PULSE 85; RESP 16; TEMP 36.2; O2SAT 98
[2024-07-20] MEDS: sodium chloride 0.9% 250 ML 75 ML IV (10:12)
[2024-07-20] MEDS: acetaminophen 325 mg Tablet 650 MG PO (10:13)
[2024-07-20] MEDS: methylPREDNISolone sod succ 125 mg/2 mL INJ 40 MG IVP (10:19)
[2024-07-20 10:23] LABS: Basophils % 0.5 %; Eosinophils # 0.3 10^3/uL (0.0-0.8); Eosinophils % 4.3 %; Hematocrit 36.4 % (36-47); Lymphocytes % 16.8 %; Mean Corpuscular HGB Conc 34.1 g/dL (30-55); Mean Corpuscular Hemoglobin 36.2 pg (27-33); Mean Corpuscular Volume 106.1 fl (85-98); Mean Platelet Volume 10.8 fL (7.4-10.4); Monocytes # 0.6 10^3/uL (0.2-0.9); Monocytes % 10.8 %; Neutrophils # 3.93 10^3/uL (1.8-7.7); Neutrophils % 67.4 %; Nucleated Red Blood Cells % 0 %; Platelet Count 149 10^3/cmm (157-399); Red Blood Count 3.43 10^6/uL (3.85-5.65); Red Cell Distribution Width 11.5 % (12.1-15.1); White Blood Count 5.83 10^3/uL (3.29-11.43)
[2024-07-20 10:30] LABS: Erythrocyte Sedimentation Rate 4 mm/hr (0-15)
[2024-07-20 10:43] LABS: Alanine Aminotransferase 16 U/L (0-33); Albumin Level 4.1 g/dL (3.5-5.2); Alkaline Phosphatase 68 U/L (35-105); Aspartate Amino Transferase 16 U/L (0-32); Globulin 2.2 g/dL (1.3-4.6); Total Bilirubin 0.4 mg/dL (0.15-1.2); Total Protein 6.3 g/dL (6.6-8.7)
[2024-07-20] MEDS: TOCILIZUMAB IV (10:46)
[2024-07-20] MEDS: SODIUM CHLORIDE 0.9% IV (10:46)
[2024-07-20 11:58] VITALS: BP 147/83; PULSE 68; TEMP 36.3; O2SAT 99
== END 2024-07-31 23:59 | disposition home or self-care (01) ==
PROVIDERS: PCP Family Medicine; Visit Provider Internal Medicine Rheumatology
DX: Z79.899 Other long term (current) drug therapy; M05.79 Rheumatoid arthritis with rheumatoid factor of multiple sites without organ or systems involvement
CPT/HCPCS: 80076; 82565; 85025; 85651; 86140; 96375; 96413; J2919; J3262; J7050

== ENCOUNTER 2024-08-17 09:07 | Oncology outpatient (recurring) (ONCR) | payer MEDICARE, SELFPAY ==
[2024-08-17 09:52] VITALS: BP 126/58; PULSE 77; RESP 18; TEMP 36.4; O2SAT 98
[2024-08-17] MEDS: sodium chloride 0.9% 250 ML 75 ML IV (10:04)
[2024-08-17] MEDS: acetaminophen 325 mg Tablet 650 MG PO (10:05)
[2024-08-17] MEDS: methylPREDNISolone sod succ 125 mg/2 mL INJ 40 MG IVP (10:06)
[2024-08-17] MEDS: TOCILIZUMAB IV (10:18)
[2024-08-17] MEDS: SODIUM CHLORIDE 0.9% IV (10:18)
[2024-08-17 11:34] VITALS: BP 143/64; PULSE 77; RESP 16; TEMP 36.5; O2SAT 96
== END 2024-08-31 23:59 | disposition home or self-care (01) ==
PROVIDERS: PCP Family Medicine; Visit Provider Internal Medicine Rheumatology
DX: M05.79 Rheumatoid arthritis with rheumatoid factor of multiple sites without organ or systems involvement (principal); Z79.899 Other long term (current) drug therapy
CPT/HCPCS: 96413; J2919; J3262; J7050

== ENCOUNTER 2024-09-14 10:26 | Oncology outpatient (recurring) (ONCR) | payer MEDICARE, SELFPAY ==
[2024-09-14] MEDS: acetaminophen 325 mg Tablet 650 MG PO (11:09)
[2024-09-14] MEDS: methylPREDNISolone sod succ 125 mg/2 mL INJ 40 MG IVP (11:09)
[2024-09-14] MEDS: SODIUM CHLORIDE 0.9% IV (11:24)
[2024-09-14] MEDS: TOCILIZUMAB IV (11:24)
[2024-09-14 11:41] VITALS: BP 120/57; PULSE 88; RESP 18; TEMP 36.1; O2SAT 96
[2024-09-14 12:26] VITALS: BP 116/75; PULSE 91; RESP 18; TEMP 36.5; O2SAT 99
== END 2024-09-30 23:59 | disposition home or self-care (01) ==
PROVIDERS: PCP Family Medicine; Visit Provider Internal Medicine Rheumatology
DX: M05.79 Rheumatoid arthritis with rheumatoid factor of multiple sites without organ or systems involvement (principal); Z79.899 Other long term (current) drug therapy
CPT/HCPCS: 96365; 96375; J2919; J3262

== ENCOUNTER → 2024-09-25 10:49 | Outpatient (BNVA) | payer MEDICARE, SELFPAY | PROVIDERS: PCP Family Medicine; Visit Provider Internal Medicine Rheumatology | DX: M05.79 Rheumatoid arthritis with rheumatoid factor of multiple sites without organ or systems involvement (principal); M81.0 Age-related osteoporosis without current pathological fracture; M19.041 Primary osteoarthritis, right hand; M19.042 Primary osteoarthritis, left hand; Z71.89 Other specified counseling; Z87.19 Personal history of other diseases of the digestive system | CPT/HCPCS: 20610; 99214; J1010 ==

== ENCOUNTER 2024-11-21 09:46 | Oncology outpatient (recurring) (ONCR) | payer MEDICARE, SELFPAY ==
[2024-11-21 10:55] VITALS: BP 118/69; PULSE 98; RESP 17; TEMP 36.7; O2SAT 96
[2024-11-21] MEDS: acetaminophen 325 mg Tablet 650 MG PO (11:45)
[2024-11-21] MEDS: sodium chloride 0.9% 250 ML 75 ML IV (11:45)
[2024-11-21] MEDS: methylPREDNISolone sod succ 125 mg/2 mL INJ 40 MG IVP (11:46)
[2024-11-21 11:48] LABS: Basophils # 0.1 10^3/uL (0.0-0.1); Basophils % 0.6 %; Eosinophils # 0.2 10^3/uL (0.0-0.8); Eosinophils % 3.1 %; Hematocrit 36.6 % (36-47); Lymphocytes # 0.8 10^3/uL (0.8-4.8); Lymphocytes % 10.4 %; Mean Corpuscular HGB Conc 32.5 g/dL (30-55); Mean Corpuscular Volume 107.6 fl (85-98); Mean Platelet Volume 10.2 fL (7.4-10.4); Monocytes # 0.7 10^3/uL (0.2-0.9); Monocytes % 9.5 %; Nucleated Red Blood Cells % 0 %; Platelet Count 266 10^3/cmm (157-399); Red Cell Distribution Width 11.6 % (12.1-15.1); White Blood Count 7.77 10^3/uL (3.29-11.43)
[2024-11-21] MEDS: SODIUM CHLORIDE 0.9% IV (12:26)
[2024-11-21] MEDS: TOCILIZUMAB IV (12:26)
--- NOTE | 2024-11-21 12:31 | PC.NURSE ---
1100- Verified with Aundrea, Nurse with Dr. Phipps, that patient is okay to go ahead and receive Actemra today?. Patient reports lower back fractures to L1 and L5, occurring 2 weeks ago after picking up her suitcase. Patient reports that she spoke with Dr. Moreira yesterday to notify with him prior to treatment, and he approved her to come on in. Patient is not on anti-biotics, and she is taking Tylenol/Codeine 1 tablet every 6 hours as needed for pain. Last pain med at 6am this morning. Per Aundrea, patient is okay for Actemra treatment as ordered, as verified with Dr. Phipps. - Joey Mills
[2024-11-21 12:48] LABS: Alanine Aminotransferase 13 U/L (0-33); Albumin Level 3.8 g/dL (3.5-5.2); Alkaline Phosphatase 99 U/L (35-105); Aspartate Amino Transferase 16 U/L (0-32); C Reactive Protein 13.4 mg/L (0.0-4.9); Creatinine Clr Calc Pharmacy 52.8354; Globulin 3.1 g/dL (1.3-4.6); Total Bilirubin 0.2 mg/dL (0.15-1.2); Total Protein 6.9 g/dL (6.6-8.7)
[2024-11-21 13:54] VITALS: BP 150/67; PULSE 93; RESP 16; TEMP 36.3; O2SAT 97
[2024-11-24 09:56] LABS: Sed Rate by Modified Western 103 mm/h (< OR = 30)
== END 2024-12-01 23:59 | disposition home or self-care (01) ==
PROVIDERS: PCP Family Medicine; Visit Provider Internal Medicine Rheumatology
DX: M05.79 Rheumatoid arthritis with rheumatoid factor of multiple sites without organ or systems involvement (principal); Z79.899 Other long term (current) drug therapy
CPT/HCPCS: 80076; 82565; 85025; 85652; 86140; 96413; J2919; J3262; J7050

== ENCOUNTER 2024-12-28 10:29 | Oncology outpatient (recurring) (ONCR) | payer MEDICARE, SELFPAY ==
[2024-12-28] MEDS: sodium chloride 0.9% 250 ML 75 ML IV (11:30)
[2024-12-28] MEDS: acetaminophen 325 mg Tablet 650 MG PO (11:35)
[2024-12-28] MEDS: methylPREDNISolone sod succ 40 mg SDV IVP (11:36)
[2024-12-28] MEDS: TOCILIZUMAB IV (12:05)
[2024-12-28] MEDS: SODIUM CHLORIDE 0.9% IV (12:05)
[2024-12-28 13:02] VITALS: BP 133/72; PULSE 80; RESP 17; TEMP 36.4; O2SAT 94
== END 2024-12-29 23:59 | disposition home or self-care (01) ==
PROVIDERS: PCP Family Medicine; Visit Provider Internal Medicine Rheumatology
DX: M05.79 Rheumatoid arthritis with rheumatoid factor of multiple sites without organ or systems involvement (principal); Z79.899 Other long term (current) drug therapy
CPT/HCPCS: 96365; 96375; J2919; J3262; J7050

== ENCOUNTER 2025-01-25 10:13 | Oncology outpatient (recurring) (ONCR) | payer MEDICARE, SELFPAY ==
[2025-01-25] MEDS: methylPREDNISolone sod succ 40 mg/mL INJ IVP (11:35)
[2025-01-25] MEDS: acetaminophen 325 mg Tablet 650 MG PO (11:35)
[2025-01-25 13:29] VITALS: BP 128/79; PULSE 80; RESP 18; TEMP 36.4; O2SAT 97
== END 2025-01-29 23:59 | disposition home or self-care (01) ==
PROVIDERS: PCP Family Medicine; Visit Provider Internal Medicine Rheumatology
DX: M05.79 Rheumatoid arthritis with rheumatoid factor of multiple sites without organ or systems involvement (principal); Z79.899 Other long term (current) drug therapy
CPT/HCPCS: 96375; 96413; J2919; J9999; Q5135

== ENCOUNTER 2025-02-22 10:30 | Oncology outpatient (recurring) (ONCR) | payer MEDICARE, SELFPAY ==
[2025-02-22] MEDS: sodium chloride 0.9% 250 ML 75 ML IV (12:25)
[2025-02-22] MEDS: methylPREDNISolone sod succ 40 mg/mL INJ IVP (12:27)
[2025-02-22] MEDS: acetaminophen 325 mg Tablet 650 MG PO (12:32)
[2025-02-22] MEDS: SODIUM CHLORIDE 0.9% IV (13:00)
[2025-02-22] MEDS: TOCILIZUMAB AAZG IV (13:00)
[2025-02-22 14:10] VITALS: BP 142/73; PULSE 78; RESP 17; TEMP 36.6; O2SAT 97
== END 2025-02-28 23:59 | disposition home or self-care (01) ==
PROVIDERS: PCP Family Medicine; Visit Provider Internal Medicine Rheumatology
DX: M05.79 Rheumatoid arthritis with rheumatoid factor of multiple sites without organ or systems involvement (principal); Z79.899 Other long term (current) drug therapy
CPT/HCPCS: 96375; 96413; J2919; J7050; J9999; Q5135

== ENCOUNTER 2025-04-25 09:00 | Oncology outpatient (recurring) (ONCR) | payer MEDICARE, SELFPAY ==
[2025-04-25 10:57] LABS: Basophils # 0.1 10^3/uL (0.0-0.1); Basophils % 0.8 %; Eosinophils # 0.1 10^3/uL (0.0-0.8); Eosinophils % 1.8 %; Hematocrit 34.7 % (36-47); Lymphocytes # 0.8 10^3/uL (0.8-4.8); Lymphocytes % 11.4 %; Mean Corpuscular HGB Conc 33.7 g/dL (30-55); Mean Corpuscular Hemoglobin 35.3 pg (27-33); Mean Corpuscular Volume 104.8 fl (85-98); Mean Platelet Volume 10.1 fL (7.4-10.4); Monocytes # 0.8 10^3/uL (0.2-0.9); Monocytes % 10.7 %; Neutrophils # 5.39 10^3/uL (1.8-7.7); Nucleated Red Blood Cells % 0 %; Platelet Count 224 10^3/cmm (157-399); Red Blood Count 3.31 10^6/uL (3.85-5.65); Red Cell Distribution Width 11.4 % (12.1-15.1); White Blood Count 7.19 10^3/uL (3.29-11.43)
[2025-04-25 11:09] LABS: Alanine Aminotransferase 12 U/L (0-33); Albumin Level 3.6 g/dL (3.5-5.2); Alkaline Phosphatase 93 U/L (35-105); Aspartate Amino Transferase 12 U/L (0-32); Bilirubin Direct 0.11 mg/dL (0.00-0.30); C Reactive Protein 24.2 mg/L (0.0-4.9); Globulin 3.3 g/dL (1.3-4.6); Total Bilirubin 0.3 mg/dL (0.15-1.2); Total Protein 6.9 g/dL (6.6-8.7)
[2025-04-25 11:10] LABS: Erythrocyte Sedimentation Rate 51 mm/hr (0-15)
[2025-04-25] MEDS: sodium chloride 0.9% 250 ML 75 ML IV (11:17)
[2025-04-25] MEDS: acetaminophen 325 mg Tablet 650 MG PO (11:19)
[2025-04-25] MEDS: methylPREDNISolone sod succ 40 mg/mL INJ IVP (11:20)
[2025-04-25 11:25] VITALS: BP 119/76; PULSE 84; RESP 17; TEMP 36.3; O2SAT 96
[2025-04-25 13:05] VITALS: BP 112/68; PULSE 84; RESP 16
== END 2025-04-30 23:59 | disposition home or self-care (01) ==
PROVIDERS: PCP Family Medicine; Visit Provider Internal Medicine Rheumatology
DX: M05.79 Rheumatoid arthritis with rheumatoid factor of multiple sites without organ or systems involvement (principal); Z79.899 Other long term (current) drug therapy
CPT/HCPCS: 80076; 82565; 85025; 85651; 86140; 96375; 96413; A4222; J2919; J7050; J9999; Q5135

== ENCOUNTER 2025-05-23 09:38 | Oncology outpatient (recurring) (ONCR) | payer MEDICARE, SELFPAY ==
[2025-05-23] MEDS: methylPREDNISolone sod succ 40 mg/mL INJ IVP (10:40)
[2025-05-23] MEDS: [UNRECOGNIZED DRUG - OTHER] IV (11:08)
[2025-05-23] MEDS: TOCILIZUMAB AAZG IV (11:08)
[2025-05-23 12:20] VITALS: BP 124/78; PULSE 76; RESP 17; TEMP 36.6; O2SAT 97
== END 2025-05-31 23:59 | disposition home or self-care (01) ==
PROVIDERS: PCP Family Medicine; Visit Provider Internal Medicine Rheumatology
DX: M05.79 Rheumatoid arthritis with rheumatoid factor of multiple sites without organ or systems involvement (principal); Z79.899 Other long term (current) drug therapy
CPT/HCPCS: 96375; 96413; J2919; J7050; J9999; Q5135

== ENCOUNTER 2025-06-20 09:40 | Oncology outpatient (recurring) (ONCR) | payer MEDICARE, SELFPAY ==
[2025-06-20] MEDS: methylPREDNISolone sod succ 40 mg/mL INJ IVP (10:24)
[2025-06-20 10:31] LABS: Hematocrit 36.5 % (36-47); Hemoglobin 12.60 g/dL (11.27-16.99); Mean Corpuscular HGB Conc 34.5 g/dL (30-55); Mean Corpuscular Hemoglobin 36.0 pg (27-33); Mean Corpuscular Volume 104.3 fl (85-98); Nucleated Red Blood Cells % 0 %; Platelet Count 161 10^3/cmm (157-399); Red Blood Count 3.50 10^6/uL (3.85-5.65); White Blood Count 5.34 10^3/uL (3.29-11.43)
[2025-06-20] MEDS: [UNRECOGNIZED DRUG - OTHER] IV (10:45)
[2025-06-20] MEDS: TOCILIZUMAB AAZG IV (10:45)
[2025-06-20 10:55] LABS: Alanine Aminotransferase 16 U/L (0-33); Albumin Level 4.1 g/dL (3.5-5.2); Alkaline Phosphatase 71 U/L (35-105); Aspartate Amino Transferase 20 U/L (0-32); Creatinine Clr Calc Pharmacy 51.2521; Globulin 2.4 g/dL (1.3-4.6); Total Protein 6.5 g/dL (6.6-8.7)
[2025-06-20 11:58] VITALS: BP 135/61; PULSE 73; RESP 17; TEMP 36.4; O2SAT 97
== END 2025-07-01 23:59 | disposition home or self-care (01) ==
PROVIDERS: PCP Family Medicine; Visit Provider Internal Medicine Rheumatology
DX: M05.79 Rheumatoid arthritis with rheumatoid factor of multiple sites without organ or systems involvement (principal); Z79.899 Other long term (current) drug therapy
CPT/HCPCS: 80076; 82565; 85025; 85651; 86140; 96365; 96375; A4222; J2919; J7050; J9999; Q5135

== ENCOUNTER 2025-07-18 09:31 | Oncology outpatient (recurring) (ONCR) | payer MEDICARE, SELFPAY ==
[2025-07-18 10:26] LABS: Hematocrit 36.7 % (36-47); Hemoglobin 12.30 g/dL (11.27-16.99); Mean Corpuscular HGB Conc 33.5 g/dL (30-55); Mean Corpuscular Hemoglobin 35.2 pg (27-33); Mean Corpuscular Volume 105.2 fl (85-98); Nucleated Red Blood Cells % 0 %; Platelet Count 152 10^3/cmm (157-399); Red Blood Count 3.49 10^6/uL (3.85-5.65); White Blood Count 4.05 10^3/uL (3.29-11.43)
[2025-07-18] MEDS: methylPREDNISolone sod succ 40 mg/mL INJ IVP (10:29)
[2025-07-18 10:49] LABS: Alanine Aminotransferase 19 U/L (0-33); Albumin Level 4.0 g/dL (3.5-5.2); Alkaline Phosphatase 85 U/L (35-105); Aspartate Amino Transferase 19 U/L (0-32); Globulin 2.6 g/dL (1.3-4.6); Total Protein 6.6 g/dL (6.6-8.7)
[2025-07-18] MEDS: TOCILIZUMAB AAZG IV (11:13)
[2025-07-18] MEDS: [UNRECOGNIZED DRUG - OTHER] IV (11:13)
[2025-07-18 12:20] VITALS: BP 112/64; PULSE 74; RESP 16; TEMP 36; O2SAT 98
== END 2025-07-31 23:59 | disposition home or self-care (01) ==
PROVIDERS: PCP Family Medicine; Visit Provider Internal Medicine Rheumatology
DX: M05.79 Rheumatoid arthritis with rheumatoid factor of multiple sites without organ or systems involvement (principal); Z79.899 Other long term (current) drug therapy
CPT/HCPCS: 80076; 82565; 85025; 85651; 86140; 96375; 96413; J2919; J7050; J9999; Q5135

== ENCOUNTER 2025-08-20 09:31 | Oncology outpatient (recurring) (ONCR) | payer MEDICARE, SELFPAY ==
[2025-08-20] MEDS: methylPREDNISolone sod succ 40 mg/mL INJ IVP (10:51)
[2025-08-20] MEDS: [UNRECOGNIZED DRUG - OTHER] IV (11:22)
[2025-08-20] MEDS: TOCILIZUMAB AAZG IV (11:22)
== END 2025-08-31 23:59 | disposition home or self-care (01) ==
PROVIDERS: PCP Family Medicine; Visit Provider Internal Medicine Rheumatology
DX: M05.79 Rheumatoid arthritis with rheumatoid factor of multiple sites without organ or systems involvement (principal); Z79.899 Other long term (current) drug therapy
CPT/HCPCS: 96375; 96413; J2919; J7050; J9999; Q5135

== ENCOUNTER 2025-09-17 09:29 | Oncology outpatient (recurring) (ONCR) | payer MEDICARE, SELFPAY ==
[2025-09-17 10:19] LABS: Hematocrit 39.6 % (36-47); Hemoglobin 13.50 g/dL (11.27-16.99); Mean Corpuscular HGB Conc 34.1 g/dL (30-55); Mean Corpuscular Hemoglobin 36.1 pg (27-33); Mean Corpuscular Volume 105.9 fl (85-98); Nucleated Red Blood Cells % 0 %; Platelet Count 154 10^3/cmm (157-399); Red Blood Count 3.74 10^6/uL (3.85-5.65); White Blood Count 4.68 10^3/uL (3.29-11.43)
[2025-09-17] MEDS: methylPREDNISolone sod succ 40 mg/mL INJ IVP (10:29)
[2025-09-17 10:33] VITALS: BP 109/58; PULSE 70; RESP 16; TEMP 36.3; O2SAT 95
[2025-09-17 10:39] LABS: Alanine Aminotransferase 31 U/L (0-33); Albumin Level 4.4 g/dL (3.5-5.2); Alkaline Phosphatase 97 U/L (35-105); Aspartate Amino Transferase 24 U/L (0-32); Globulin 2.6 g/dL (1.3-4.6); Total Protein 7.0 g/dL (6.6-8.7)
[2025-09-17] MEDS: [UNRECOGNIZED DRUG - OTHER] IV (11:05)
[2025-09-17] MEDS: TOCILIZUMAB AAZG IV (11:05)
[2025-09-17 12:07] VITALS: BP 133/75; PULSE 78; RESP 16; TEMP 36.2; O2SAT 98
== END 2025-09-30 23:59 | disposition home or self-care (01) ==
PROVIDERS: PCP Family Medicine; Visit Provider Internal Medicine Rheumatology
DX: M05.79 Rheumatoid arthritis with rheumatoid factor of multiple sites without organ or systems involvement (principal); Z79.899 Other long term (current) drug therapy; M05.9 Rheumatoid arthritis with rheumatoid factor, unspecified
CPT/HCPCS: 80076; 82565; 85025; 85651; 86140; 96375; 96413; J2919; J7050; J9999; Q5135

== ENCOUNTER 2025-10-16 09:34 | Oncology outpatient (recurring) (ONCR) | payer MEDICARE, SELFPAY ==
[2025-10-16 09:52] VITALS: BP 100/63; PULSE 76; TEMP 36.5; O2SAT 96
[2025-10-16] MEDS: methylPREDNISolone sod succ 40 mg/mL INJ IVP (10:41)
[2025-10-16] MEDS: TOCILIZUMAB AAZG IV (11:06)
[2025-10-16] MEDS: [UNRECOGNIZED DRUG - OTHER] IV (11:06)
[2025-10-16 12:25] VITALS: BP 126/80; PULSE 74; RESP 16; TEMP 36.4; O2SAT 96
== END 2025-10-31 23:59 | disposition home or self-care (01) ==
PROVIDERS: PCP Family Medicine; Visit Provider Internal Medicine Rheumatology
DX: M05.79 Rheumatoid arthritis with rheumatoid factor of multiple sites without organ or systems involvement (principal); Z79.899 Other long term (current) drug therapy
CPT/HCPCS: 96375; 96413; J2919; J7050; J9999; Q5135